=== PATIENT | female | born 1950 | race Caucasian/White ===

== ENCOUNTER 2017-12-31 20:13 | Inpatient (IN) ==
[2017-12-31] MEDS ORDERED: 0.9 % Sodium Chloride 1,000 ML IVC ONE ×2 (21:15→21:37)
[2017-12-31 21:18] LABS: Basophils % 0.2 %; Eosinophils % 0.2 %; Hematocrit 41.8 % (35.3-44.9); Hemoglobin 14.8 g/dL (11.5-15.4); Immature Granulocytes % 0.5 % (0-4); Lymphocytes % 14.7 %; Mean Corpuscular HGB Conc 35.4 g/dL (31.6-35.5); Mean Corpuscular Hemoglobin 31.4 pg (28.0-33.3); Mean Corpuscular Volume 88.6 fL (83.0-100.0); Mean Platelet Volume 11.2 fL (9.4-12.4); Monocytes # 0.5 K/mcL (0.0-1.3); Monocytes % 6.8 %; Neutrophils # 5.2 K/mcL (1.6-8.9); Platelet Count 109 K/mcL (140-400); Red Blood Count 4.72 M/mcL (3.82-4.97); Red Cell Distribution Width 12.8 % (11.5-14.5); Segmented Neutrophils % 77.6 %
[2017-12-31] MEDS ORDERED: Ondansetron 4 MG/2 ML VIAL IVP ONE (21:26)
[2017-12-31 21:39] LABS: Bilirubin,Urine Negative (Negative); Blood,Urine Moderate (Negative); Clarity,Urine Cloudy (Clear); Color,Urine Yellow (Yellow); Glucose,Urine (UA) Normal (Normal); Ketones,Urine Negative (Negative); Leukocyte Esterase,Urine Negative (Negative); Nitrite,Urine Negative (Negative); PH,Urine 5.5 pH Units (5.0-8.0); Protein,Urine 100 mg/dL (Neg-Trace); Specific Gravity,Urine 1.018 (1.010-1.025); Urobilinogen,Urine Normal (Normal)
[2017-12-31 21:40] LABS: Albumin/Globulin Ratio 1.5 (1.1-2.2); Bilirubin,Total 0.4 mg/dL (0.3-1.0); Calcium 8.9 mg/dL (8.6-10.3); Globulin 2.6 g/dL (2.4-3.5); Total Protein 6.6 g/dL (6.4-8.9)
[2017-12-31 21:41] LABS: Hyaline Casts,Urine None Seen per lpf (None-Few); Squamous Epithelial Cell,Urine Many per lpf (None-Few)
[2017-12-31] MEDS ORDERED: Ipratropium/Albuterol Neb 3 ML IH ONE (21:44)
--- NOTE | 2017-12-31 21:44 | Emergency Department Note ---
Disposition Clinical Impression: Influenza, BREANA (acute kidney injury), Elevated troponin Pneumonia Qualifiers: Pneumonia type: due to unspecified organism Laterality: left Lung location: unspecified part of lung Qualified Code(s): J18.9 - Pneumonia, unspecified organism Sepsis Qualifiers: Sepsis type: sepsis due to unspecified organism Qualified Code(s): A41.9 - Sepsis, unspecified organism Disposition: Admitted As Inpatient Condition: Fair Referrals: Navdeep Franco MD [Primary Care Provider] - Forms: ED Satisfaction Letter Time of Disposition: 22:26 General Adult HPI - General Chief complaint: ED Upper Respiratory Infection Stated complaint: cough,sore throat,nausea,diarrhea x6 days Time Seen by Provider: 12/31/17 21:12 Source: family Mode of arrival: ambulatory Limitations: no limitations Nursing Notes Reviewed: Yes Vital Signs Reviewed: Yes - History of Present Illness HPI Narrative: 67-year-old female history of COPD, stents, high blood pressure present for evaluation of shortness of breath and nonproductive cough for the past week. Patient denies any chest pain. Patient denies any nausea or vomiting. Patient has been having a sore throat as well as URI symptoms. Patient has had low- grade fevers. Patient states she quit smoking a week ago. Patient has been having sick contacts with her who is admitted for pneumonia. Patient denies any abdominal pain. Patient does not wear any oxygen at home. Patient has also been having nausea vomiting and diarrhea during this time. Pain Scale: 3 - Related Data Home Medications Medication Instructions Recorded Confirmed Aspirin Enteric Coated [Aspirin EC] 325 mg PO DAILY 12/31/17 12/31/17 Bee Pollen 580 mg PO DAILY 12/31/17 12/31/17 Benzonatate [Tessalon] 100 mg PO TID 12/31/17 12/31/17 Carvedilol [Carvedilol] 18.75 mg PO BID 12/31/17 12/31/17 Cholecalciferol (Vitamin D3) 10,000 unit PO DAILY 12/31/17 12/31/17 [Vitamin D3] Cyanocobalamin (Vitamin B-12) 1,000 mcg PO DAILY 12/31/17 12/31/17 [Vitamin B12] Lisinopril [Zestril] 10 mg PO DAILY 12/31/17 12/31/17 Omeprazole [PriLOSEC] 20 mg PO DAILY 12/31/17 12/31/17 Simvastatin [Zocor] 40 mg PO HS 12/31/17 12/31/17 Vitamin B Complex [B Complex] 1 each PO DAILY 12/31/17 12/31/17 Allergies Allergy/AdvReac Type Severity Reaction Status Date / Time bee venom protein (honey bee) Allergy Anaphylaxis Verified 12/31/17 20:30 All systems ED: reviewed and negative except as stated. Constitutional: Reports: fever Cardiovascular: Denies: chest pain Respiratory: Reports: cough, dyspnea. Denies: sputum production Gastrointestinal: Reports: nausea, vomiting, diarrhea. Denies: abdominal pain Past Medical History - Past Medical History Source: patient Medical history: Reports: coronary artery disease, hypertension, myocardial infarction Psychiatric history: Reports: no psych history - Social History Smoking Status: Current every day smoker Smokeless Tobacco Status: No Alcohol use: Reports: none Drug use: Reports: none Physical Exam - General Limitations: no limitations General appearance: alert, in no apparent distress - Head Head exam: atraumatic, normocephalic, normal inspection - Eye Eye exam: Present: normal appearance, PERRL, EOMI - ENT ENT exam: normal exam, mucous membranes moist - Neck Neck exam: Present: normal inspection - Chest Chest inspection: Present: normal inspection, symmetric chest wall rise - Respiratory Respiratory exam: Present: prolonged expiratory phase, other (Diffusely decreased breath sounds). Absent: respiratory distress - Cardiovascular Cardiovascular exam: Present: regular rate, normal rhythm. Absent: systolic murmur - Abdominal Exam Abdominal exam: Present: soft, Non-Tender - Extremities Exam Extremities exam: Present: normal inspection. Absent: pedal edema - Back Exam Back exam: Present: normal inspection - Neurological Exam Neurological exam: Present: alert, oriented X3 - Skin Skin exam: Present: warm, dry, intact, normal color Course Course Narrative: Patient will get basic labs, chest x-ray, now this, concerns for likely sepsis pneumonia given hypotensive borderline fever. Patient did lactate IV fluid hydration. - Reevaluation(s) Reevaluation #1: Patient seen and examined. Patient's blood pressures responding to the fluids. Patient's lab work reviewed showed that she does have acute kidney injury likely secondary from GI losses. Patient also has a mildly elevated troponin with no ischemic EKG changes. Patient was given an aspirin. Patient chest x- ray suggestive of likely pneumonia. Patient was influenza positive. Patient was started on antibiotics as well as Tamiflu given the patient's symptoms. Time: 22:24 Reevaluation #2: Patient repeat examination shows good perfusion. Responding to IV fluids. Patient's continuing to urinate. Time: 22:32 Vital Signs Temperature 99.9 F H 12/31/17 20:30 Pulse Rate 62 12/31/17 20:30 Respiratory Rate 16 12/31/17 20:30 Blood Pressure 75/40 12/31/17 20:30 O2 Sat by Pulse Oximetry 91 12/31/17 20:30 Temperature 98.4 F 12/31/17 22:02 Pulse Rate 66 12/31/17 22:15 Respiratory Rate 16 12/31/17 22:15 Blood Pressure 103/50 12/31/17 22:15 O2 Sat by Pulse Oximetry 98 12/31/17 22:15 Oxygen Delivery Oxygen Delivery Room Air Medical Decision Making - MDM Narrative Medical decision making narrative: Patient presents with concerns of sepsis. Source likely in the lungs. Patient was hypotensive. Patient's been having nausea vomiting diarrhea. Patient's ED evaluation shows influenza pneumonia. Given the severity of the patient's symptoms with hypotension the patient was started on antibiotics as well as Tamiflu. Patient's blood pressures responding to the fluids. Patient does have an element of acute kidney injury as well as elevated troponin with no secondary EKG changes of ischemia. Patient was given an aspirin. Patient's not complaining of chest pain. Patient was given a breathing treatment which did improve her symptoms. Patient's potassium was also noted to be low and was repleted in the emergency department. Patient is sepsis requiring IV fluid hydrations and meeting the 30 mL/kg fluid bolus. - Lab Data Lab results reviewed: Yes I reviewed the patient's lab results. Result diagrams: 12/31/17 21:05 12/31/17 21:05 Lab Results 12/31/17 12/31/17 12/31/17 Range/Units 21:05 21:05 21:05 WBC 6.7 (4.3-11.1) K/mcL RBC 4.72 (3.82-4.97) M/mcL Hgb 14.8 (11.5-15.4) g/dL Hct 41.8 (35.3-44.9) % MCV 88.6 (83.0-100.0) fL MCH 31.4 (28.0-33.3) pg MCHC 35.4 (31.6-35.5) g/dL RDW 12.8 (11.5-14.5) % Plt Count 109 L (140-400) K/mcL MPV 11.2 (9.4-12.4) fL Immature Gran % 0.5 (0-4) % Seg Neutrophils % 77.6 % Lymphocytes % 14.7 % Monocytes % 6.8 % Eosinophils % 0.2 % Basophils % 0.2 % Neutrophils # 5.2 (1.6-8.9) K/mcL Lymphocytes # 1.0 (0.6-4.6) K/mcL Monocytes # 0.5 (0.0-1.3) K/mcL Eosinophils # 0.0 (0.0-0.6) K/mcL Basophils # 0.0 (0.0-0.2) K/mcL Sodium 132 L (136-145) mEq/L Potassium 3.0 L (3.5-5.1) mEq/L Chloride 99 (98-107) mEq/L Carbon Dioxide 22 L (23-29) mEq/L BUN 40 H (8-23) mg/dL Creatinine 1.41 H (0.60-1.20) mg/dL Est GFR ( Amer) 45 L (> 60) Est GFR (Non-Af Amer) 37 L (> 60) BUN/Creatinine Ratio 28 H (6-26) Glucose 133 H (70-105) mg/dL Calculated Osmolality 286 (280-300) Lactic Acid (0.5-2.2) mmol/L Calcium 8.9 (8.6-10.3) mg/dL Magnesium (1.6-2.6) mg/dL Total Bilirubin 0.4 (0.3-1.0) mg/dL AST 127 H (13-39) Units/L ALT 56 H (7-52) Units/L Alkaline Phosphatase 71 (34-104) Units/L Troponin I 0.05 H* (< 0.04) ng/mL B-Natriuretic Peptide (Less than 100) pg/mL Serum Total Protein 6.6 (6.4-8.9) g/dL Albumin 4.0 (3.5-5.7) g/dL Globulin 2.6 (2.4-3.5) g/dL Albumin/Globulin Ratio 1.5 (1.1-2.2) Urine Color (Yellow) Urine Clarity (Clear) Urine pH (5.0-8.0) pH Units Ur Specific [place] (1.010-1.025) Urine Protein (Neg-Trace) mg/dL Urine Glucose (UA) (Normal) mg/dL Urine Ketones (Negative) mg/dL Urine Blood (Negative) Urine Nitrite (Negative) Urine Bilirubin (Negative) Urine Urobilinogen (Normal) mg/dL Ur Leukocyte Esterase (Negative) Urine Microscopic RBC (0-3) per hpf Urine Microscopic WBC (0-3) per hpf Ur Squamous Epith Cells (None-Few) per lpf Urine Bacteria (None-Few) per hpf Hyaline Casts (None-Few) per lpf Ur Culture Indicated? (NO) 12/31/17 12/31/17 12/31/17 Range/Units 21:05 21:28 21:40 WBC (4.3-11.1) K/mcL RBC (3.82-4.97) M/mcL Hgb (11.5-15.4) g/dL Hct (35.3-44.9) % MCV (83.0-100.0) fL MCH (28.0-33.3) pg MCHC (31.6-35.5) g/dL RDW (11.5-14.5) % Plt Count (140-400) K/mcL MPV (9.4-12.4) fL Immature Gran % (0-4) % Seg Neutrophils % % Lymphocytes % % Monocytes % % Eosinophils % % Basophils % % Neutrophils # (1.6-8.9) K/mcL Lymphocytes # (0.6-4.6) K/mcL Monocytes # (0.0-1.3) K/mcL Eosinophils # (0.0-0.6) K/mcL Basophils # (0.0-0.2) K/mcL Sodium (136-145) mEq/L Potassium (3.5-5.1) mEq/L Chloride (98-107) mEq/L Carbon Dioxide (23-29) mEq/L BUN (8-23) mg/dL Creatinine (0.60-1.20) mg/dL Est GFR ( Amer) (> 60) Est GFR (Non-Af Amer) (> 60) BUN/Creatinine Ratio (6-26) Glucose (70-105) mg/dL Calculated Osmolality (280-300) Lactic Acid 1.4 (0.5-2.2) mmol/L Calcium (8.6-10.3) mg/dL Magnesium (1.6-2.6) mg/dL Total Bilirubin (0.3-1.0) mg/dL AST (13-39) Units/L ALT (7-52) Units/L Alkaline Phosphatase (34-104) Units/L Troponin I (< 0.04) ng/mL B-Natriuretic Peptide 46 (Less than 100) pg/mL Serum Total Protein (6.4-8.9) g/dL Albumin (3.5-5.7) g/dL Globulin (2.4-3.5) g/dL Albumin/Globulin Ratio (1.1-2.2) Urine Color Yellow (Yellow) Urine Clarity Cloudy A (Clear) Urine pH 5.5 (5.0-8.0) pH Units Ur Specific [place] 1.018 (1.010-1.025) Urine Protein 100 H (Neg-Trace) mg/dL Urine Glucose (UA) Normal (Normal) mg/dL Urine Ketones Negative (Negative) mg/dL Urine Blood Moderate H (Negative) Urine Nitrite Negative (Negative) Urine Bilirubin Negative (Negative) Urine Urobilinogen Normal (Normal) mg/dL Ur Leukocyte Esterase Negative (Negative) Urine Microscopic RBC 3-5 H (0-3) per hpf Urine Microscopic WBC 5-15 H (0-3) per hpf Ur Squamous Epith Cells Many H (None-Few) per lpf Urine Bacteria Many H (None-Few) per hpf Hyaline Casts None Seen (None-Few) per lpf Ur Culture Indicated? NO (NO) 12/31/17 Range/Units 22:05 WBC (4.3-11.1) K/mcL RBC (3.82-4.97) M/mcL Hgb (11.5-15.4) g/dL Hct (35.3-44.9) % MCV (83.0-100.0) fL MCH (28.0-33.3) pg MCHC (31.6-35.5) g/dL RDW (11.5-14.5) % Plt Count (140-400) K/mcL MPV (9.4-12.4) fL Immature Gran % (0-4) % Seg Neutrophils % % Lymphocytes % % Monocytes % % Eosinophils % % Basophils % % Neutrophils # (1.6-8.9) K/mcL Lymphocytes # (0.6-4.6) K/mcL Monocytes # (0.0-1.3) K/mcL Eosinophils # (0.0-0.6) K/mcL Basophils # (0.0-0.2) K/mcL Sodium (136-145) mEq/L Potassium (3.5-5.1) mEq/L Chloride (98-107) mEq/L Carbon Dioxide (23-29) mEq/L BUN (8-23) mg/dL Creatinine (0.60-1.20) mg/dL Est GFR ( Amer) (> 60) Est GFR (Non-Af Amer) (> 60) BUN/Creatinine Ratio (6-26) Glucose (70-105) mg/dL Calculated Osmolality (280-300) Lactic Acid (0.5-2.2) mmol/L Calcium (8.6-10.3) mg/dL Magnesium 1.8 (1.6-2.6) mg/dL Total Bilirubin (0.3-1.0) mg/dL AST (13-39) Units/L ALT (7-52) Units/L Alkaline Phosphatase (34-104) Units/L Troponin I (< 0.04) ng/mL B-Natriuretic Peptide (Less than 100) pg/mL Serum Total Protein (6.4-8.9) g/dL Albumin (3.5-5.7) g/dL Globulin (2.4-3.5) g/dL Albumin/Globulin Ratio (1.1-2.2) Urine Color (Yellow) Urine Clarity (Clear) Urine pH (5.0-8.0) pH Units Ur Specific [place] (1.010-1.025) Urine Protein (Neg-Trace) mg/dL Urine Glucose (UA) (Normal) mg/dL Urine Ketones (Negative) mg/dL Urine Blood (Negative) Urine Nitrite (Negative) Urine Bilirubin (Negative) Urine Urobilinogen (Normal) mg/dL Ur Leukocyte Esterase (Negative) Urine Microscopic RBC (0-3) per hpf Urine Microscopic WBC (0-3) per hpf Ur Squamous Epith Cells (None-Few) per lpf Urine Bacteria (None-Few) per hpf Hyaline Casts (None-Few) per lpf Ur Culture Indicated? (NO) - Radiology Data Radiology results reviewed: Yes I reviewed the patient's radiology results. Chest X-Ray 12/31/17 21:40 IMPRESSION: Possible infiltrate within the left lung base. Recommend repeating exam with PA and lateral positioning for further evaluation. D/ / Mitchell Bello MD / Mitchell Bello MD Interpreting Provider: Mitchell Bello MD - EKG Data EKG #1 EKG attestation: Yes I reviewed and interpreted this EKG. EKG shows normal: sinus rhythm Rate: bradycardia Rhythm: NSR Bazine/QRS: normal Interpretation: no acute changes, nonspecific ST-T wave changes S.Julio César.Jerry - S.B.AKaterina Situation: Demographics Background: Presenting Complaint Assessment: Vital Signs, Course and respsone to treatment, Patient/Family Expectation Recommendation: Barrier(s) to disposition, Recommendation based on pending studies, treatments, or consults S.B.A.Sam Report Given to: Dr. Verónica Mann Repor Time: 22:39 Attestation Statement - Attestation Attestation: I, James Bosewll, examined this patient and my medical decision-making was reviewed with the VACCINE CUSTOMER REPRESENTATIVE/PA/Advanced Practice Nurse/Resident Physician. I agree with the documented findings, disposition and treatment plan as described except to the extent set forth below. 67-year-old female presents emergency Department with concerns of cough, sore throat, lightheadedness. Patient is in the hospital for treatment of pneumonia. Patient was hypotensive on initial evaluation in emergency department. Patient is awake and talking and not in respiratory distress. Patient describes chest pain which is only with cough however she continues to feel nauseated and lightheaded when not coughing. No associated diaphoresis. Patient is influenza be positive. Chest x-ray showed possible infiltrate in the left lung base. Patient be started on antibiotics emergency department and admitted for further care and evaluation.
[2017-12-31] MEDS ORDERED: Aspirin 81 MG TAB.CHEW PO ONE (21:50)
[2017-12-31 22:17] LABS: Bacteria,Urine Many per hpf (None-Few)
[2017-12-31] MEDS ORDERED: Hyoscyamine 0.5 MG/ML MLS IVP ONE (22:26)
[2017-12-31] MEDS ORDERED: 0.9 % Sodium Chloride 1,000 ML ONE (22:42)
[2017-12-31] MEDS ORDERED: Piperacillin/Tazobactam 3.375 GM in Water for inj. (sterile) 20 ML 20 ML IVPB ONE (23:00)
[2018-01-01] MEDS ORDERED: Acetaminophen 325 MG TABLET PO PRN (01:25)
[2018-01-01] MEDS ORDERED: Naloxone 0.4 MG/ML INJ IVP PRN (01:25)
[2018-01-01 01:43] LABS: Basophils % 0.2 %; Eosinophils % 0.2 %; Mean Corpuscular Hemoglobin 31.1 pg (28.0-33.3); Red Blood Count 3.95 M/mcL (3.82-4.97); Red Cell Distribution Width 12.9 % (11.5-14.5)
[2018-01-01 01:45] LABS: Hematocrit 35.4 % (35.3-44.9); Hemoglobin 12.3 g/dL (11.5-15.4); Immature Granulocytes % 0.5 % (0-4); Immature Platelets 8.2 % (1.1-6.1); Lymphocytes % 15.3 %; Mean Corpuscular HGB Conc 34.7 g/dL (31.6-35.5); Mean Corpuscular Volume 89.6 fL (83.0-100.0); Mean Platelet Volume 11.1 fL (9.4-12.4); Monocytes # 0.5 K/mcL (0.0-1.3); Monocytes % 7.4 %; Segmented Neutrophils % 76.4 %
[2018-01-01 01:47] LABS: Platelet Count 99 K/mcL (140-400)
[2018-01-01 02:16] LABS: Calcium 7.6 mg/dL (8.6-10.3); Magnesium 1.8 mg/dL (1.6-2.6); Potassium 3.4 mEq/L (3.5-5.1)
[2018-01-01] MEDS: 0.9 % Sodium Chloride 1,000 ML IVC SCH ×2 (02:32→08:40)
[2018-01-01] MEDS: cefTRIAXone 1,000 MG in Water for inj. (sterile) 20 ML 10 ML IVPB SCH (02:32)
[2018-01-01] MEDS: Azithromycin 500 MG in D5% in Water 250 ML IVPB SCH (02:33)
--- NOTE | 2018-01-01 05:05 | Internal Med History&Physical ---
Date of Encounter: 01/01/18 Time of Encounter: 03:00 Assessment and Plan (1) CAD (coronary artery disease) Current visit: Yes Status: Acute Cont home medications ASA, BB, ACEI, and statin Qualifiers: Coronary Disease-Associated Artery/Lesion type: [place] artery [place] vs. transplanted heart: [place] heart Associated angina: without angina Qualified Code(s): I25.10 - Atherosclerotic heart disease of [place] coronary artery without angina pectoris (2) DVT prophylaxis Current visit: Yes Status: Acute Heparin SC (3) BREANA (acute kidney injury) Current visit: Yes Status: Acute Cr is higher than baseline, place pt on IVF, f/u with renal function. (4) Elevated troponin Current visit: Yes Status: Acute Pt denies chest pain, EKG is unremarkable, possibly demend ischemia. - Will track 3 set of troponin. - Cont cardiac monitoring. (5) Influenza Current visit: Yes Status: Acute Influenza B positive. Place pt on tamiflu 75mg po bid to finish 10 doses. (6) Pneumonia Current visit: Yes Status: Acute Will treat pt as CAP with azithromycin and rocephin. - Cough syrup for symptomatic treatment. Qualifiers: Pneumonia type: due to Pneumococcus Laterality: left Lung location: lower lobe of lung Qualified Code(s): J13 - Pneumonia due to Streptococcus pneumoniae (7) Hypokalemia Current visit: Yes Status: Acute Possibly due to poor intake, give po supplement. Internal Medicine - H&P: HPI Chief complaint: Cough Admitted From: Home Plans for Post Hospital Care: Home History of present illness: Ms. Montenegro is a 67 year old female with Hx of CAD s/p stent present to ER for non- productive cough for 7 days. Pt denies fever, runny nose, SOB, chest pain, muscle ache, nausea, or vomiting. In ER, pt was found Flu B positive. CXR shows possible LLL pneumonia. Pt denies recent hospitalization. Pt was admitted for influenza and CAP. Past Med Surg Social Fam HX - Past Medical History Medical history: coronary artery disease, hypertension, myocardial infarction Psychiatric history: no psych history - Social History Smoking Status: Current every day smoker Smokeless Tobacco Status: No Alcohol use: none Drug use: none - Family History Mother History Unknown: Yes Internal Medicine - H&P: Meds Aspirin Enteric Coated [Aspirin EC] 325 mg PO DAILY 12/31/17 [History] Bee Pollen 580 mg PO DAILY 12/31/17 [History] Benzonatate [Tessalon] 100 mg PO TID 12/31/17 [History] Carvedilol [Carvedilol] 18.75 mg PO BID 12/31/17 [History] Cholecalciferol (Vitamin D3) [Vitamin D3] 10,000 unit PO DAILY 12/31/17 [History ] Cyanocobalamin (Vitamin B-12) [Vitamin B12] 1,000 mcg PO DAILY 12/31/17 [History ] Lisinopril [Zestril] 10 mg PO DAILY 12/31/17 [History] Omeprazole [PriLOSEC] 20 mg PO DAILY 12/31/17 [History] Simvastatin [Zocor] 40 mg PO HS 12/31/17 [History] Vitamin B Complex [B Complex] 1 each PO DAILY 12/31/17 [History] 3 Allergy/AdvReac Type Severity Reaction Status Date / Time bee venom protein (honey bee) Allergy Anaphylaxis Verified 12/31/17 20:30 All Systems PM: A 10-system review of systems was performed and is negative for pertinent findings except as documented above in the HPI. - Constitutional Vitals: Temp Pulse Resp BP Pulse Ox 98.4 F 66 18 98/49 95 12/31/17 22:02 01/01/18 00:44 01/01/18 00:44 01/01/18 00:44 01/01/18 00:44 General appearance: Present: mild distress, A&O X 3, answers questions appropriately - Head Head exam: Present: atraumatic, normocephalic - Eye Eye exam: Present: PERRL, conjuntiva pink, sclera anicteric Pupils: Present: PERRL - Neck Neck exam general surgery: Present: supple, trachea midline. Absent: lymphadenopathy - Respiratory Respiratory exam: Present: CTAB. Absent: accessory muscle use, rales, rhonchi, wheezes - Cardiovascular Cardiovascular exam: Present: RRR, +S1, +S2. Absent: diastolic murmur, gallop, rubs, systolic murmur - GI/Abdominal GI/Abdominal exam: Present: normal bowel sounds, soft, no peritoneal signs. Absent: distended, tenderness - Extremities Exam Extremities exam: Present: warm, radial pulses palpable and symmetrical. Absent : calf tenderness, cyanotic, pedal edema - Neurological Exam Neurological exam: Present: CN II-XII intact, oriented X3, no focal deficits. Absent: pronater drift, facial droop, speech deficit - Skin Skin exam: Present: dry, intact Internal Med - H&P Results - Labs CBC & Chem 7: 01/01/18 01:36 01/01/18 01:36 Labs: Short CBC 01/01/18 Range/Units 01:36 WBC 6.6 (4.3-11.1) K/mcL Hgb 12.3 D (11.5-15.4) g/dL Hct 35.4 (35.3-44.9) % Plt Count 99 L (140-400) K/mcL Neutrophils # 5.0 (1.6-8.9) K/mcL BMP 01/01/18 01:36 Sodium 135 L Potassium 3.4 L Chloride 109 H Carbon Dioxide 19 L BUN 36 H Creatinine 1.20 Glucose 119 H Calcium 7.6 L Cardiac Enzymes 01/01/18 Range/Units 01:36 Troponin I 0.05 H* (< 0.04) ng/mL - EKG Data -: EKG Interpreted by Myself EKG shows normal: sinus rhythm Rate: normal
[2018-01-01] MEDS: *HR* Heparin 5,000 UNIT/ML VIAL SQ SCH ×2 (06:08→17:34)
[2018-01-01] MEDS: Aspirin Enteric Coated 325 MG Tablet PO SCH (08:41)
[2018-01-01] MEDS: Vitamin B Complex/Vit C/Vit E 1 EACH TABLET PO SCH (08:41)
[2018-01-01] MEDS: Cyanocobalamin (B-12) 1,000 MCG TABLET PO SCH (08:41)
[2018-01-01] MEDS: Cholecalciferol (D-3) 1,000 UNIT TABLET PO SCH (08:41)
--- NOTE | 2018-01-01 10:02 | Event Note ---
Date of Encounter: 01/01/18 Time of Encounter: 10:01 Patient seen and examined. Admitted last night with the flu, pneumonia, BREANA. Improving somewhat. We will continue Tamiflu, Zithromax, ceftriaxone. Continue IV fluids.
[2018-01-01] MEDS: Ipratropium/Albuterol Neb 3 ML IH PRN (16:55)
[2018-01-02] MEDS: Azithromycin 500 MG in D5% in Water 250 ML IVPB SCH (01:45)
[2018-01-02] MEDS: cefTRIAXone 1,000 MG in Water for inj. (sterile) 20 ML 10 ML IVPB SCH (01:46)
[2018-01-02] MEDS: Ipratropium/Albuterol Neb 3 ML IH PRN (02:09)
[2018-01-02 04:36] LABS: Basophils % 0.2 %; Eosinophils % 0.2 %; Hematocrit 39.3 % (35.3-44.9); Immature Granulocytes % 0.5 % (0-4); Lymphocytes # 1.9 K/mcL (0.6-4.6); Lymphocytes % 20.1 %; Mean Corpuscular HGB Conc 33.1 g/dL (31.6-35.5); Mean Corpuscular Hemoglobin 30.2 pg (28.0-33.3); Mean Corpuscular Volume 91.2 fL (83.0-100.0); Mean Platelet Volume 11.9 fL (9.4-12.4); Monocytes # 0.7 K/mcL (0.0-1.3); Monocytes % 7.1 %; Neutrophils # 6.8 K/mcL (1.6-8.9); Nucleated Red Blood Cells 0.4 /100 WBC (0); Platelet Count 108 K/mcL (140-400); Red Blood Count 4.31 M/mcL (3.82-4.97); Red Cell Distribution Width 13.5 % (11.5-14.5); Segmented Neutrophils % 71.9 %
[2018-01-02] MEDS ORDERED: Furosemide 40 MG/4 ML VIAL IVP ONE ×2 (04:40→05:07)
[2018-01-02] MEDS ORDERED: Nitroglycerin 1 INCH/GM PACKET TP ONE (04:47)
[2018-01-02] MEDS ORDERED: Nitroglycerin 0.4 MG TAB.SUBL SL ONE (04:48)
[2018-01-02] MEDS ORDERED: Furosemide 40 MG/4 ML VIAL ONE ×2 (04:48→05:14)
[2018-01-02] MEDS: Nitroglycerin 0.4 MG TAB.SUBL SL STA ×2 (04:49→12:46)
[2018-01-02 05:09] LABS: Platelet Estimate Decreased (Normal)
[2018-01-02 05:10] LABS: Reactive Lymphocytes Present (Not Present)
[2018-01-02 05:13] LABS: Alanine Aminotransferase 90 Units/L (7-52); Alkaline Phosphatase 137 Units/L (34-104); Aspartate Amino Transferase 136 Units/L (13-39); BUN/Creatinine Ratio 17 (6-26); Bilirubin,Total 0.4 mg/dL (0.3-1.0); Blood Urea Nitrogen 10 mg/dL (8-23); Calcium 8.7 mg/dL (8.6-10.3); Carbon Dioxide 21 mEq/L (23-29); Chloride 110 mEq/L (98-107); Glucose 153 mg/dL (70-105); Magnesium 1.8 mg/dL (1.6-2.6); Osmolality,Calculated 286 (280-300); Potassium 4.4 mEq/L (3.5-5.1); Sodium 137 mEq/L (136-145); Total Protein 5.6 g/dL (6.4-8.9); eGFR For Non-African Americans > 60 (> 60)
[2018-01-02 05:31] LABS: Albumin 3.3 g/dL (3.5-5.7); Albumin/Globulin Ratio 1.4 (1.1-2.2); Globulin 2.3 g/dL (2.4-3.5)
[2018-01-02] MEDS ORDERED: *HR* Heparin 5,000 UNIT/ML VIAL IVP ONE (05:42)
[2018-01-02] MEDS ORDERED: *HR* Heparin 5,000 UNIT/ML VIAL IVP PRN ×2 (05:42)
[2018-01-02] MEDS ORDERED: Heparin 25,000 UNIT/500 ML D5W 25,000 UNIT/500 ML BAG IVC SCH (05:45)
--- NOTE | 2018-01-02 05:53 | Event Note ---
Date of Encounter: 01/02/18 Time of Encounter: 05:00 Pt has sudden onset increased SOB, diaphoresis, and c/o chest pressure. See pt at bedside, she is in acute respiratory distress. BP is elevated to 200s. Lungs is full of rhonchi/rales B/L, no wheezes. Limbs are cold and pt has diaphoresis. Pt has hx of CAD s/p stent. ACS was suspected. NTG SL followed with NTG patch was placed. BIPAP was placed. Lasix 40 mg iv x 2 was given. Orozco placed. EKG and CXR ordered. 3 sets of troponin ordered. After treatment, pt feels better, chest pressure improved. Still tachypnea but improved. EKG reviewed, shows NSR w/o significant ST-T changes. CXR shows increased diffuse interstitial and alveolar opacities, considering pulmonary edema or ARDS. Pt has elevated troponin to 0.11. Will start low dose heparin drip, check echo and consult cardio in AM. Cont cardiac monitoring and cont track another two troponin. Cont tamiflu and abx for influenza and PNA. Cont BiPAP supportive now.
--- NOTE | 2018-01-02 07:37 | Event Note ---
Date of Encounter: 01/02/18 Time of Encounter: 07:31 Pateint seen and examined. Agree with the Resident's note as written by Dr. Cardenas. I have provided direct supervision in the care of the patient. Admitted originally with the flu, pneumonia, BREAAN. Has been on Tamiflu, Zithromax, ceftriaxone. Last night went into respiratory distress. Please see separate event note by Dr. Sibley. Patient was given lasix. trops were noted to be elevated and a heparin drip was started. CXR with worsening findings suggestive of possibly ARDS vs pulmonary edema. EKG with no ST or T wave changes Allow for diuresis and repeat a CXR Consider CTA chest if hypoxia is not improving with diuresis ABG STAT Consider a c/s to pulm Transfer out of ED to [facility] O2 supports Trend cardiac enzymes. Has h/o CAD c/w BB/ASA/statin Stop IVF Strict I&Os c/s cardiology has been placed by night team. Check TTE c/w current abx as is f/u on cultures c/w tamiflu BREANA resolved
[2018-01-02 07:47] LABS: INR 1.2; Prothrombin Time 12.8 Seconds (9.4-12.1)
[2018-01-02 07:50] LABS: Activated Partial Thrombo Time 36.1 Seconds (26.0-36.0)
[2018-01-02 08:03] LABS: Hematocrit 39.7 % (35.3-44.9); Hemoglobin 13.7 g/dL (11.5-15.4); Mean Corpuscular HGB Conc 34.5 g/dL (31.6-35.5); Mean Corpuscular Hemoglobin 31.1 pg (28.0-33.3); Platelet Count 121 K/mcL (140-400); Red Blood Count 4.41 M/mcL (3.82-4.97); Red Cell Distribution Width 13.6 % (11.5-14.5)
[2018-01-02 08:30] LABS: ABG Base Excess 3 mEq/L (-2 to 3); ABG HCO3 26 mEq/L (21-27); ABG Oxygen Saturation 98 % (95-98); ABG PCO2 34 mmHg (35-45); ABG PH 7.48 pH Units (7.32-7.45); ABG PO2 89 mmHg (85-104); ABG TCO2 27 mEq/L (20-26); Blood Gas Respiration Rate 20
[2018-01-02] MEDS: Aspirin Enteric Coated 325 MG Tablet PO SCH (08:51)
[2018-01-02] MEDS: Vitamin B Complex/Vit C/Vit E 1 EACH TABLET PO SCH (10:06)
[2018-01-02] MEDS: Cyanocobalamin (B-12) 1,000 MCG TABLET PO SCH (10:06)
[2018-01-02] MEDS: Cholecalciferol (D-3) 1,000 UNIT TABLET PO SCH (10:07)
[2018-01-02] MEDS ORDERED: 0.9 % Sodium Chloride 250 ML ONE (10:11)
[2018-01-02] MEDS: Ipratropium/Albuterol Neb 3 ML IH SCH ×4 (11:50→23:55)
--- NOTE | 2018-01-02 12:25 | Cardiology Consult Note ---
Date of Encounter: 01/02/18 Time of Encounter: 12:21 Assessment and Plan (1) Elevated troponin Current Visit: Yes Status: Acute Mild troponin elevation up to 0.11 likely demand ischemia in the setting of acute hypoxic respiratory distress due to PNA/influenza. Denies chest pain. EKG with no concerning changes. Check TTE. (2) Pneumonia Current Visit: Yes Status: Acute Hospitalist following. CXR showed infiltrate LLL. On IV antibiotic. Qualifiers: Pneumonia type: due to Pneumococcus Laterality: left Lung location: lower lobe of lung Qualified Code(s): J13 - Pneumonia due to Streptococcus pneumoniae (3) CAD (coronary artery disease) Current Visit: Yes Status: Acute H/o RI and 3 cardiac stents in 2006. Continue asa, statin, and bb. Qualifiers: Coronary Disease-Associated Artery/Lesion type: [place] artery [place] vs. transplanted heart: [place] heart Associated angina: without angina Qualified Code(s): I25.10 - Atherosclerotic heart disease of [place] coronary artery without angina pectoris Discussion w patient/family: The assessment and plan as outlined above was discussed with the patient and/or family members who expressed understanding and agreement. All questions were answered. Thank you for involving us in the care of your patient. Please call with any questions. History of Present Illness Consult date: 12/07/17 Requesting physician: James Boswell Consult reason: ELevated troponin Chief complaint: SOB History of present illness: Ms. Montenegro is a 67 year old female with a past medical history of RI and PCI in 2006, SVT, HTN, HLD, COPD, and tobacco abuse who presented with SOB and cough increasing for over one month. She was found to have influenza B and PNA. She developed respiratory distress last night and required c-pap. Cardiology consulted for elevated troponin. She denies having chest pain or palpitations. Past Med Surg Social Fam HX - Past Medical History Medical history: coronary artery disease, hyperlipidemia, hypertension, myocardial infarction Psychiatric history: no psych history - Social History Smoking Status: Current every day smoker Smokeless Tobacco Status: No Alcohol use: none Drug use: none - Family History Mother History Unknown: Yes Medications and Allergies Aspirin Enteric Coated [Aspirin EC] 325 mg PO DAILY 12/31/17 [History] Bee Pollen 580 mg PO DAILY 12/31/17 [History] Benzonatate [Tessalon] 100 mg PO TID 12/31/17 [History] Carvedilol [Carvedilol] 18.75 mg PO BID 12/31/17 [History] Cholecalciferol (Vitamin D3) [Vitamin D3] 10,000 unit PO DAILY 12/31/17 [History ] Cyanocobalamin (Vitamin B-12) [Vitamin B12] 1,000 mcg PO DAILY 12/31/17 [History ] Lisinopril [Zestril] 10 mg PO DAILY 12/31/17 [History] Omeprazole [PriLOSEC] 20 mg PO DAILY 12/31/17 [History] Simvastatin [Zocor] 40 mg PO HS 12/31/17 [History] Vitamin B Complex [B Complex] 1 each PO DAILY 12/31/17 [History] 3 Allergy/AdvReac Type Severity Reaction Status Date / Time bee venom protein (honey bee) Allergy Anaphylaxis Verified 12/31/17 20:30 All Systems Review: The remainder of the systems were reviewed and are negative Physical Examination Vital Signs, Last 4 Hours Temp Pulse Resp BP Pulse Ox 01/02/18 12:04 17 127/65 94 01/02/18 11:20 98.9 F 70 17 127/65 94 General: Conversant, No Apparent Distress HEENT: Atraumatic, Normocephaly, Mucus Membranes Moist Neck: No JVD, Normal carotid pulses Cardiac: Reg Rate and Rhythm, Normal S1 and S2, No Murmur, Other Lungs: Other (Rhonci scattered throughout. Conversational dyspnea. ) Neuro: Alert and responsive, No focal deficits noted Abdomen: Soft, Non-Tender Skin: No rashes noted on visualized skin Musculoskeletal: No Chest Wall Tenderness Extremities: No Clubbing, No Cyanosis, No Edema, Normal Pulses Results 01/02/18 03:34 01/02/18 03:34 Lab Results 01/02/18 01/02/18 01/02/18 03:34 03:34 03:34 WBC 9.4 Hgb 13.0 Hct 39.3 Plt Count 108 L INR APTT Sodium 137 Potassium 4.4 Chloride 110 H Carbon Dioxide 21 L BUN 10 Creatinine 0.59 L Glucose 153 H Calcium 8.7 Magnesium 1.8 Total Bilirubin 0.4 AST 136 H ALT 90 H Alkaline Phosphatase 137 H Troponin I 0.11 H* 01/02/18 01/02/18 07:03 10:55 WBC Hgb Hct Plt Count INR 1.2 APTT 36.1 H Sodium Potassium Chloride Carbon Dioxide BUN Creatinine Glucose Calcium Magnesium Total Bilirubin AST ALT Alkaline Phosphatase Troponin I 0.48 H* - Imaging and Cardiology Chest Xray: report reviewed Echo: pending - EKG Interpretation EKG results cardiology: personally reviewed (Sr with no acute ST changes) Consult Discharge Plan - Plan Referrals: Navdeep Franco MD [Primary Care Provider] -
[2018-01-02] MEDS ORDERED: Magnesium Oxide 400 MG TABLET PO ONE (15:55)
[2018-01-03 02:47] LABS: Basophils % 0.2 %; Eosinophils % 0.3 %; Hemoglobin 12.5 g/dL (11.5-15.4); Immature Granulocytes % 0.3 % (0-4); Lymphocytes % 30.1 %; Mean Corpuscular HGB Conc 34.7 g/dL (31.6-35.5); Mean Corpuscular Hemoglobin 30.7 pg (28.0-33.3); Mean Corpuscular Volume 88.5 fL (83.0-100.0); Mean Platelet Volume 11.3 fL (9.4-12.4); Monocytes # 0.9 K/mcL (0.0-1.3); Monocytes % 9.3 %; Platelet Count 130 K/mcL (140-400); Red Blood Count 4.07 M/mcL (3.82-4.97); Red Cell Distribution Width 13.3 % (11.5-14.5); Segmented Neutrophils % 59.8 %
[2018-01-03 03:04] LABS: BUN/Creatinine Ratio 23 (6-26); Blood Urea Nitrogen 12 mg/dL (8-23); Calcium 8.9 mg/dL (8.6-10.3); Carbon Dioxide 25 mEq/L (23-29); Chloride 104 mEq/L (98-107); Glucose 108 mg/dL (70-105); Magnesium 1.7 mg/dL (1.6-2.6); Osmolality,Calculated 284 (280-300); Potassium 3.7 mEq/L (3.5-5.1); Sodium 137 mEq/L (136-145); eGFR For Non-African Americans > 60 (> 60)
[2018-01-03 04:30] LABS: Platelet Estimate Slight Decrease (Normal); Reactive Lymphocytes Present (Not Present)
[2018-01-03] MEDS: Ipratropium/Albuterol Neb 3 ML IH SCH ×6 (04:50→23:11)
[2018-01-03] MEDS: cefTRIAXone 1,000 MG in Water for inj. (sterile) 20 ML 10 ML IVPB SCH (04:52)
[2018-01-03] MEDS: Azithromycin 500 MG in D5% in Water 250 ML IVPB SCH (04:55)
[2018-01-03] MEDS: cefTRIAXone 1,000 MG in Water for inj. (sterile) 20 ML 10 ML IVP SCH (06:18)
--- NOTE | 2018-01-03 07:35 | Internal Med Progress Note ---
Date of Encounter: 01/03/18 Time of Encounter: 07:33 - Assessment and plan (1) Acute respiratory failure with hypoxia Current Visit: Yes Status: Acute Assessment and plan: Possibly from pulmonary edema. Also has pneumonia in the flu. Had significant improvement with diuresis. Cut down diuresis to 40 mg daily. O2 support as needed. Nebs. Repeat chest x-ray yesterday showed improvement in pulmonary edema.. (2) Pneumonia Current Visit: Yes Status: Acute Assessment and plan: Continue Zithromax and Rocephin day 3 antibiotics. Cultures have been negative. O2 support as needed. Continue nebulizers. Qualifiers: Pneumonia type: due to Pneumococcus Laterality: left Lung location: lower lobe of lung Qualified Code(s): J13 - Pneumonia due to Streptococcus pneumoniae (3) Influenza Current Visit: Yes Status: Acute Assessment and plan: Continue Tamiflu to 3. (4) Elevated troponin Current Visit: Yes Status: Acute Assessment and plan: Trops trended up to 0.48 and have decreased to 0.30. Possibly demand ischemia. Cardiology is following. They are okay with a heparin drip for now. Echo with an EF of 60% with mild pulmonary hypertension. Await cardiology's recommendations for today. Possible LHC?? (5) BREANA (acute kidney injury) Current Visit: Yes Status: Acute Assessment and plan: Resolved. IVF have stopped. Continue to monitor. (6) CAD (coronary artery disease) Current Visit: Yes Status: Acute Assessment and plan: Currently on a heparin drip. Continue aspirin, beta radha, statin. Qualifiers: Coronary Disease-Associated Artery/Lesion type: [place] artery [place] vs. transplanted heart: [place] heart Associated angina: without angina Qualified Code(s): I25.10 - Atherosclerotic heart disease of [place] coronary artery without angina pectoris (7) DVT prophylaxis Current Visit: Yes Status: Acute Assessment and plan: On heparin drip - Subjective Interval history: Patient seen and examined. No acute events. Afebrile. She is actually currently on room air. Denies chest pain. Admitted originally with the flu, pneumonia, BREANA. Has been on Tamiflu, Zithromax, ceftriaxone. Stay complicated by going into acute respiratory distress with findings of possible pulmonary edema/ARDS. She was diuresed aggressively yesterday with a great response. She is off BiPAP now. Cardiology is following the patient as well for elevated troponins. - Constitutional Vitals: Temp Pulse Resp BP Pulse Ox 99.3 F 69 16 134/57 93 01/03/18 01:38 01/03/18 01:38 01/03/18 04:50 01/03/18 01:38 01/03/18 04:50 General appearance: Present: mild distress, A&O X 3, answers questions appropriately Exam: GEN: NAD CVS: RRR. S1, S2, No m/r/g RESP: CTAB ABD: Soft, NT, ND, +BS EXT: No edema. 2+ DP, No rashes NEURO: Nonfocal Internal Medicine: Result - Labs CBC & Chem 7: 01/03/18 02:10 01/03/18 02:10 Labs: Short CBC 01/02/18 01/03/18 Range/Units 07:03 02:10 WBC 11.0 10.0 (4.3-11.1) K/mcL Hgb 13.7 12.5 (11.5-15.4) g/dL Hct 39.7 36.0 (35.3-44.9) % Plt Count 121 L 130 L (140-400) K/mcL Neutrophils # 6.0 (1.6-8.9) K/mcL BMP 01/03/18 02:10 Sodium 137 Potassium 3.7 Chloride 104 Carbon Dioxide 25 BUN 12 Creatinine 0.52 L Glucose 108 H Calcium 8.9 Cardiac Enzymes 01/02/18 01/02/18 Range/Units 10:55 17:52 Troponin I 0.48 H* 0.30 H* (< 0.04) ng/mL - ABG Interpretation ABG results: ABG ABG pH 7.48 pH Units (7.32-7.45) H 01/02/18 08:24 ABG pCO2 34 mmHg (35-45) L 01/02/18 08:24 ABG pO2 89 mmHg (85-104) 01/02/18 08:24 ABG O2 Saturation 98 % (95-98) 01/02/18 08:24 PT/INR, D-dimer PT 12.8 Seconds (9.4-12.1) H 01/02/18 07:03 - Impressions Impressions Echocardiogram 01/02/18 05:44 Impressions: LVEF 60%. Normal LV chamber size, wall thickness and function. Normal right ventricular structure and function. Mild pulmonary hypertension. No significant valvular dysfunction. Left Ventricular Wall Motion: Rest Echo Findings All wall segments showed normal motion. Findings: Study Quality * Technically adequate exam. ECG Findings * Normal sinus rhythm. Left Ventricle * LVEF 60%. * Normal LV chamber size, wall thickness and function. Right Ventricle * Normal right ventricular structure and function. Left Atrium * Mildly dilated left atrium. Right Atrium * Normal right atrial size. Interatrial Septum * No evidence of PFO by color Doppler. Aortic Valve * Trileaflet aortic valve with normal function. * No aortic regurgitation. * No aortic stenosis. Mitral Valve * Normal mitral valve structure and function. * No mitral stenosis. * No mitral regurgitation. Tricuspid Valve * Normal tricuspid valve structure and function. * Trace tricuspid regurgitation. * Mild pulmonary hypertension. Pulmonic Valve * Normal pulmonic valve structure and function. * No pulmonic regurgitation. Aorta * Normally sized aortic root. Pericardium * The pericardium appears normal. IVC * Normal IVC dimensions and inspiratory collapse. Pulmonary Artery * Normal visualized portions of the main pulmonary artery. Chest X-Ray 01/02/18 14:00 IMPRESSION: 1. Mild pulmonary edema, improved compared to prior study earlier today. Small bilateral pleural effusions remain present. D/ / Cristo Rodriguez MD / Cristo Rodriguez MD Interpreting Provider: Cristo Rodriguez MD Consult Discharge Plan - Plan Referrals: Navdeep Franco MD [Primary Care Provider] -
[2018-01-03] MEDS ORDERED: Magnesium Oxide 400 MG TABLET PO ONE (07:37)
[2018-01-03] MEDS ORDERED: Furosemide 40 MG/4 ML VIAL IVP SCH (08:00)
[2018-01-03] MEDS: Cyanocobalamin (B-12) 1,000 MCG TABLET PO SCH (09:24)
[2018-01-03] MEDS: Aspirin Enteric Coated 325 MG Tablet PO SCH (09:25)
[2018-01-03] MEDS: Vitamin B Complex/Vit C/Vit E 1 EACH TABLET PO SCH (09:26)
[2018-01-03] MEDS: Furosemide 40 MG/4 ML VIAL IVP SCH (09:26)
[2018-01-03] MEDS: Cholecalciferol (D-3) 1,000 UNIT TABLET PO SCH (09:26)
--- NOTE | 2018-01-03 10:23 | Electrocardiograph Report ---
[place] [id number] Test Date: 2017-12-31 Pat Name: Kyle Montenegro Department: 104 Room: [facility] Gender: F Front Line Supervisor: : 1950 Requested By: Lane Philip Order Number: [id number] Reading MD: Narayan Hall DO Measurements Intervals [place] Rate: 58 P: 11 WV: 135 QRS: 66 QRSD: 94 T: 79 QT: 446 QTc: 442 Interpretive Statements SINUS BRADYCARDIA Electronically Signed On 01-03-2018 10:22:09 EST by Narayan Hall DO
--- NOTE | 2018-01-03 10:36 | Cardiology Progress Note ---
Date of Encounter: 01/03/18 Time of Encounter: 10:34 Assessment and Plan (1) Elevated troponin Current Visit: Yes Status: Acute Mild troponin elevation up to 0.48 possible NSTEMI vs type II ME from respiratory distress. Given cardiac history a LHC is recommended prior to discharge for ischemic evaluation. LHC R/B/A discussed. She agrees to proceed only when she can have a face to face conversation with her . is also hospitalized with influenza. Discussed with nursing staff. She is currently pain free. TTE shows preserved EF. Continue asa, statin, bb, and heparin gtt. Please notify cardiology when patient is ready for LHC. If it is not done today we will likely complete on saturday. (2) Pneumonia Current Visit: Yes Status: Acute Hospitalist following. CXR showed infiltrate LLL. On IV antibiotic. Repeat CXR shows bilateral pleural effusions. Qualifiers: Pneumonia type: due to Pneumococcus Laterality: left Lung location: lower lobe of lung Qualified Code(s): J13 - Pneumonia due to Streptococcus pneumoniae (3) CAD (coronary artery disease) Current Visit: Yes Status: Acute H/o ME and 3 cardiac stents in 2006. Continue asa, statin, and bb. Qualifiers: Coronary Disease-Associated Artery/Lesion type: [place] artery [place] vs. transplanted heart: [place] heart Associated angina: without angina Qualified Code(s): I25.10 - Atherosclerotic heart disease of [place] coronary artery without angina pectoris (4) Pleural effusion Current Visit: Yes Status: Acute Bilateral pleural effusion seen on repeat CXR. Flash pulmonary edema from IVF and possible ischemia? TTE shows preserved EF and no significant valvular disease. Agree with IV fluid. LHC when able. Discussion w patient/family: The assessment and plan as outlined above was discussed with the patient and/or family members who expressed understanding and agreement. All questions were answered. Thank you for involving us in the care of your patient. Please call with any questions. Subjective Principal diagnosis: NSTEMI Interval history: Ms. Montenegro reports she is breathing better. C/o concern for puentes catheter irritation. Objective Vital Signs, Last 4 Hours Temp Pulse Resp BP Pulse Ox 01/03/18 08:07 97.8 F 66 16 178/73 97 General: Conversant, No Apparent Distress HEENT: Atraumatic, Normocephaly, Mucus Membranes Moist Neck: No JVD, Normal carotid pulses Cardiac: Reg Rate and Rhythm, Normal S1 and S2, No Murmur Lungs: Normal Breath Sounds, No Wheeze, Rales, Rhonchi Neuro: Alert and responsive, No focal deficits noted Abdomen: Soft, Non-Tender Skin: No rashes noted on visualized skin Musculoskeletal: No Chest Wall Tenderness Extremities: No Clubbing, No Cyanosis, No Edema, Normal Pulses Other: Puentes draining lexi color urine. Results 01/03/18 02:10 01/03/18 02:10 Lab Results 01/02/18 01/02/18 01/02/18 07:03 10:55 13:13 WBC 11.0 Hgb 13.7 Hct 39.7 Plt Count 121 L APTT 100.6 H D Sodium Potassium Chloride Carbon Dioxide BUN Creatinine Glucose Calcium Magnesium Troponin I 0.48 H* 01/02/18 01/02/18 01/03/18 17:52 20:23 02:10 WBC 10.0 Hgb 12.5 Hct 36.0 Plt Count 130 L APTT 97.8 H Sodium Potassium Chloride Carbon Dioxide BUN Creatinine Glucose Calcium Magnesium Troponin I 0.30 H* 01/03/18 01/03/18 02:10 02:10 WBC Hgb Hct Plt Count APTT 85.2 H Sodium 137 Potassium 3.7 Chloride 104 Carbon Dioxide 25 BUN 12 Creatinine 0.52 L Glucose 108 H Calcium 8.9 Magnesium 1.7 Troponin I - Imaging and Cardiology Echo: report reviewed - EKG Interpretation EKG results cardiology: personally reviewed Consult Discharge Plan - Plan Referrals: Navdeep Franco MD [Primary Care Provider] -
[2018-01-03] MEDS ORDERED: *HR* Midazolam HCl 2 MG/2 ML VIAL ONE ×2 (14:59→15:36)
[2018-01-03] MEDS ORDERED: Heparin 1,000 UNITS/500 mL 500 ML ONE (16:14)
[2018-01-03] MEDS ORDERED: *HR* Heparin 10,000 UNIT/10 ML VIAL ONE (16:14)
[2018-01-03] MEDS ORDERED: ISOVUE-370 200 ML INFUS..BTL IV ONE (16:15)
[2018-01-03] MEDS ORDERED: 0.9 % Sodium Chloride 1,000 ML IVC SCH (16:15)
[2018-01-03] MEDS ORDERED: *HR* Ticagrelor 90 MG TABLET ONE (16:19)
--- NOTE | 2018-01-03 16:22 | Pre-Sedation Evaluation ---
Pre-sedation evaluation - Pre-sedation checklist Date of procedure: 01/03/18 Procedure: left heart caTH Recent Vitals: Last Vital Signs Temp 97.5 F L 01/03/18 11:44 Pulse 69 01/03/18 11:44 Resp 16 01/03/18 11:44 BP 117/53 01/03/18 11:44 Pulse Ox 95 01/03/18 11:44 H&P (including ROS) documented in medical record: Yes Previous reaction to sedatives/anesthetics: No Dietary Status: NPO 6 hours prior to procedure Airway Assessment: Patient can open mouth completely, TMJ function normal Dentition: No loose teeth or bridges Possible difficult airway: No ASA Classification *see protocol: CLASS II-Mild systemic disease Plan of Care: Pt appropriate candidate for procedure/moderate/conscious sedation , Risks/benefits of procedure/sedation discussed w/ patient/family, If not NPO; Risk of intake outweiged by necessity to perform procedure
--- NOTE | 2018-01-03 16:25 | Invasive Diagnostic Lab Proc ---
Name: Kyle Montenegro Date of Study: 01/03/2018 Date: 1950 Ht: 65.0in Medical Record#: [id number] Age: 67 Wt: 154.32lb Gender: Female BSA: 1.77 Order #: [id number] BMI: 25.71 Physicians Procedure Physician: Marc Aquino DO Referring MD: Referring MD: Staff Name Position Time In Monalisa Junior RT (R) Monitor 03:01 PM Sergio Duong RN Vertical Mill Operator 03:01 PM [facility], Sulma RT (R) Scrub 03:01 PM Indications Indication Non-Stemi Procedures Performed Procedure L HRT ARTERY/VENTRICLE ANGIO PRQ CARD TEVIN STENT W/ANGIO 1 VSL PRQ CARD TEVIN STENT W/ANGIO 1 VSL Pre-Procedure Checklist Informed consent is complete signed and on chart. H&P is on chart. ID band is on and ID verified with patient. Patient NPO for procedure The procedure was described for the patient and questions were answered. Blood Pressure: 117/53 ECG is on chart. Rhythm: NSR Plan of Care Patient will tolerate the procedure without complications. Adequate level of comfort will be maintained. Hemodynamics will remain stable Patient will recover from procedure without complications. Respiratory function will be maintained. Cardiac rhythm will remain stable. Patient temperature will be maintained. Patient and/or family have verbalized understanding of the procedure. Patient Education Chief Complaint/Reason for Test: Cardiac Cath Developmental Category: Geriatric (65+ years) Developmentally Appropriate for Age: Yes Learning Barriers: None Education Needs: Procedure Education Method: Verbal Information Taught: Cardiac Cath Educational Evaluation: Able to repeat information Intravenous Access Time IV Size Location DC'd Fluid/Drip Rate Units RN 03:03 PM 20g 1 11/07" Patent On Arrival Rt Arm 0.9NaCl 25 ml/hr Sergio Duong RN Allergies BEES Vital Signs Time BP (mmHg) HR (bpm) O2 Sat. RR (bpm) LOC 03:03 PM 117 / 53 69 95 % 16 5 = Fully awake and oriented or at pre-proc level 03:03 PM 131 / 62 62 96 % 15 4 = Oriented but drowsy 03:02 PM / % 4 = Oriented but drowsy 03:17 PM / % 4 = Oriented but drowsy 03:32 PM / % 4 = Oriented but drowsy 03:47 PM / % 4 = Oriented but drowsy 03:00 PM 131 / 62 62 % 15 03:04 PM 110 / 52 67 94 % 13 03:09 PM 122 / 59 67 91 % 0 03:14 PM 113 / 71 68 95 % 6 03:19 PM 131 / 72 65 90 % 16 03:25 PM 142 / 62 62 91 % 03:29 PM 128 / 58 63 94 % 03:34 PM 146 / 68 62 93 % 22 03:38 PM 116 / 94 70 93 % 8 03:44 PM 144 / 49 64 92 % 32 03:49 PM 142 / 72 63 95 % 03:54 PM 161 / 58 64 92 % 27 03:59 PM 157 / 60 62 94 % 24 04:04 PM 153 / 65 65 94 % 27 04:03 PM / % 4 = Oriented but drowsy Procedural Medications Time Medication Dose Units Method Given By 03:02 PM Oxygen 2 L/min nasal cannula Sergio Duong RN 03:02 PM Versed 2 mg Intravenous Sergio Duong RN 03:32 PM Lidocaine 2% 10 ml Subcutaneous Marc Aquino DO 03:35 PM Versed 1 mg Intravenous Sergio Duong RN 03:50 PM Heparin 3000 units Intravenous Sergio Duong RN 04:06 PM Brilinta 180 mg Orally Sergio Duong RN ASA Classification: CLASS II- Mild systemic disease (i.e. well-controlled diabetes, hypertension, asthma, cigarette smoking) Joe Score Preprocedure Postprocedure Activity 2- Moves 4 extremities sustained head lift Activity 2- Moves 4 extremities sustained head lift Circulation 2- SBP +/= 20 points of pre-anesthetic level Circulation 2- SBP +/= 20 points of pre-anesthetic level Consciousness 2- Awake and alert oriented x 3 Consciousness 2- Awake and alert oriented x 3 O2 Saturation 2- Able to maintain O2 satruation of 92% on room air O2 Saturation 2- Able to maintain O2 satruation of 92% on room air Respiratory 2- Able to deep breathe and cough well Respiratory 2- Able to deep breathe and cough well Total Score 10 Total Score 10 Contrast Agent: Isovue Diagnostic Contrast: 100 ml Total Contrast: 100 ml Fluoro Dose: 623 mGy Activated Clotting Time Time Seconds to Clot 03:49 PM 93 03:59 PM 400 Procedure Log Time Note Enter By 01:44 PM CathStat 02:26 PM 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 paint 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 technician 2 at 14:26 [email or web address] 02:52 PM Physician arrived 14:52 [email or web address] 02:52 PM Meet and greet completed [email or web address] 02:52 PM Procedure start 14:52 [email or web address] 02:58 PM Vitals capture started with the following parameters, Patient=Adult, Interval=5 min, Initial Gobndjhr=179 mmHg, Deflation Rate=5 mmHg, Cuff placed on Right Arm 03:00 PM HR=62 bpm, DQAI=003/62 mmhg, Resp=15 B/min, Comment=NSR 03:00 PM Recorded ECG: HR=61 Condition=Condition 1 03:01 PM Monalisa Junior RT (R) Position: Monitor Time in: 15:01 [email or web address] 03:01 PM Sergio Duong RN Position: Vertical Mill Operator Time in: 15:01 [email or web address] 03:01 PM Sulma Moses RT (R) Position: Scrub Time in: 15:01 [email or web address] 03:01 PM Patient charges- Angio tray pack, Navilyst 3mm J, Pulse Oximetry and ACIST tubing and transducer [email or web address] 03:01 PM Case Delayed No [email or web address] 03:01 PM Hair removed from procedure site in holding area using clippers. Bilateral groin prepped with Chloraprep by Monalisa Junior RT (R), then patient was draped. Skin intact. [email or web address] 03:01 PM Karolina completed [email or web address] 03:01 PM Sign in performed according to hospital policy. [email or web address] 03:01 PM Procedure start 15:01 [email or web address] 03:02 PM Time: 15:02 Oxygen on at 2 L/min per nasal cannula by Sergio Duong RN [email or web address] 03:02 PM Time: 15:02 Versed 2 mg Intravenous Given by Sergio Duong RN [email or web address] 03:02 PM Time: 15:02 Patient comfortable and pain free: Yes [email or web address] 03:02 PM Time: 15:02LOC: 4 = Oriented but drowsy [email or web address] 03:04 PM HR=67 bpm, BNSA=757/52 mmhg, SpO2=94.0 %, Resp=13 B/min, Comment=NSR 03:09 PM HR=67 bpm, AULL=103/59 mmhg, SpO2=91.0 %, Resp=0 B/min, Comment=NSR 03:10 PM Pressure channel 2 zeroed. 03:14 PM HR=68 bpm, CAHZ=835/71 mmhg, SpO2=95.0 %, Resp=6 B/min, Comment=NSR 03:17 PM Time: 15:02 Patient comfortable and pain free: Yes [email or web address] 03:17 PM Time: 15:02LOC: 4 = Oriented but drowsy [email or web address] 03:19 PM HR=65 bpm, OZZK=693/72 mmhg, SpO2=90.0 %, Resp=16 B/min, Comment=NSR 03:25 PM HR=62 bpm, YZAD=455/62 mmhg, SpO2=91.0 %, Comment=NSR 03:29 PM HR=63 bpm, YHUL=593/58 mmhg, SpO2=94.0 %, Comment=NSR 03:32 PM Time out performed according to hospital policy [email or web address] 03:32 PM Time: 15:17 Patient comfortable and pain free: Yes [email or web address] 03:32 PM Time: 15:17LOC: 4 = Oriented but drowsy [email or web address] 03:32 PM Time: 15:32 10 ml Lidocaine 2% to right groin Subcutaneous Given by Marc Aquino DO [email or web address] 03:34 PM HR=62 bpm, IMTQ=512/68 mmhg, SpO2=93.0 %, Resp=22 B/min, Comment=NSR 03:35 PM Time: 15:35 Versed 1 mg Intravenous Given by Sergio Duong RN [email or web address] 03:37 PM Micro-Introducer Kit utilized for sheath placement [email or web address] 03:38 PM Access obtained by percutaneous puncture. 6Fr 10cm Terumo [place] sheath placed in right Femoral artery. [id number] [email or web address] 03:38 PM 5Fr FR 4 catheter inserted over the wire DNC [email or web address] 03:38 PM 0.035 145cm Navilyst 3mmJ wire [id number] [email or web address] 03:38 PM Catheter selectively placed in left ventricle [email or web address] 03:38 PM Bolus angiogram of left Ventricle complete: 10 ml/sec for a total of 20 mls [email or web address] 03:38 PM HR=70 bpm, WLRU=709/94 mmhg, SpO2=93.0 %, Resp=8 B/min, Comment=NSR 03:39 PM Recorded Pressure: LV, HR=56, Condition=Condition 1 (Left Ventricle) LV 119/34/39 03:39 PM Recorded Pressure: LV, Ao, HR=66, Condition=Condition 1 (Left Ventricle) LV 135/0/11, (Aorta) Ao 155/49/104 03:40 PM RCA angiography performed in multiple views. [email or web address] 03:40 PM Catheter removed [email or web address] 03:40 PM Lesion found in Mid RCA. Pre Stenosis: 85 Pre HARISH Flow: 3: Complete and Brisk Flow/Perfusion [email or web address] 03:41 PM 5Fr FL 4 catheter inserted over the wire [facility] [email or web address] 03:41 PM LCA angiography performed in multiple views. [email or web address] 03:41 PM Recorded Pressure: Ao, HR=66, Condition=Condition 1 (Aorta) Ao 152/61/97 03:42 PM Recorded Pressure: Ao, HR=68, Condition=Condition 1 (Aorta) Ao 153/63/97 03:43 PM Lesion found in Proximal LAD. Pre Stenosis: 80 Pre HARISH Flow: 3: Complete and Brisk Flow/Perfusion [email or web address] 03:43 PM Catheter removed [email or web address] 03:44 PM 6Fr JL4 Runway guide catheter was used to cannulate the PCI vessel successfully. reused? No [email or web address] 03:44 PM .014 ChoICE PT Extra Support 300cm guide wire across target lesion- successful. reused? No [email or web address] 03:44 PM HR=64 bpm, UJJD=323/49 mmhg, SpO2=92.0 %, Resp=32 B/min, Comment=NSR 03:45 PM Inflation device was opened. [email or web address] 03:47 PM Time: 15:32LOC: 4 = Oriented but drowsy [email or web address] 03:47 PM Time: 15:32 Patient comfortable and pain free: Yes [email or web address] 03:48 PM 2.5mm x 20mm Synergy drug-eluting stent across target lesion- successful Lot #[id number] [email or web address] 03:49 PM HR=63 bpm, MGZZ=135/72 mmhg, SpO2=95.0 %, Comment=NSR 03:50 PM At 15:49 the ACT was 93 seconds. [email or web address] 03:50 PM Time: 15:50 Heparin 3000 units Intravenous Given by Sergio Duong RN [email or web address] 03:51 PM Stent deployed. inflated @ 16 too for 17 seconds [email or web address] 03:52 PM Stent delivery system removed intact. [email or web address] 03:52 PM Recorded Pressure: Ao, HR=66, Condition=Condition 1 (Aorta) Ao 188/73/119 03:53 PM Guide catheter removed intact. [email or web address] 03:53 PM Guide wire removed intact. [email or web address] 03:53 PM 6Fr JR 4 Runway guide catheter was used to cannulate the PCI vessel successfully. reused? No [email or web address] 03:54 PM HR=64 bpm, LFHK=038/58 mmhg, SpO2=92.0 %, Resp=27 B/min, Comment=NSR 03:58 PM Guidewire re-inserted. [email or web address] 03:58 PM Recorded Pressure: Ao, HR=64, Condition=Condition 1 (Aorta) Ao 159/61/98 03:58 PM 2.5mm x 12mm Synergy drug-eluting stent across target lesion- successful Lot #[id number] [email or web address] 03:59 PM HR=62 bpm, PNMT=768/60 mmhg, SpO2=94.0 %, Resp=24 B/min, Comment=NSR 04:00 PM At 15:59 the ACT was 400 seconds. [email or web address] 04:02 PM Stent deployed @ 16 too for 16 seconds [email or web address] 04:03 PM Time: 15:47 Patient comfortable and pain free: Yes [email or web address] 04:03 PM Time: 15:47LOC: 4 = Oriented but drowsy [email or web address] 04:03 PM Stent delivery system removed intact. [email or web address] 04:03 PM Guide wire removed intact. [email or web address] 04:04 PM HR=65 bpm, ODWJ=784/65 mmhg, SpO2=94.0 %, Resp=27 B/min, Comment=NSR 04:04 PM Bolus angiogram of right Femoral complete: 4 ml/sec for a total of 7 mls [email or web address] 04:05 PM Procedure completed at 16:05 [email or web address] 04:05 PM Coronary Dominance: right [email or web address] 04:05 PM Did you address HARISH flow and Dominance? Yes [email or web address] 04:05 PM Sign out completed: Radiation Dose 623.01 mGy Fluoro Time: 8.2 Isovue 370 - 200ml contrast 100 ml given by Marc Aquino DO. Complications: NoneCardiac Rehab Consult needed: YesConfirmed administered medications: Yes [email or web address] 04:05 PM Isovue 370 - 200ml,1 Bottle(s) used. [email or web address] 04:05 PM Arterial sheath pulled, Angio-seal closure device used and was Successful S/N. [email or web address] 04:05 PM Estimated Blood Loss: minimal [email or web address] 04:05 PM Post ECG NSR [email or web address] 04:06 PM Time: 16:06 Brilinta 180 mg Orally Given by Sergio Duong RN [email or web address] 04:07 PM Post Blood Pressure 153/65 [email or web address] 04:08 PM Information taught Cardiac Cath, PCI, and Angioseal [email or web address] 04:08 PM Education needs Procedure, Plan of Care, and Disease Process [email or web address] 04:08 PM Learning barriers :None [email or web address] 04:08 PM Education Methods Verbal [email or web address] 04:08 PM Education evaluation Able to repeat information [email or web address] 04:08 PM Site status No bleeding/hematoma - Rt Groin as reported by Sites, Sulma RT (R) at 16:08 [email or web address] 04:08 PM Opsite applied [email or web address] 04:08 PM Delay to floor No [email or web address] 04:08 PM Family placed in not available. [email or web address] 04:08 PM Complications: None [email or web address] 04:08 PM Fluoro Time: 8.2 [email or web address] 04:08 PM Isovue 370 - 200ml contrast 100 ml given by Marc Aquino DO. [email or web address] 04:09 PM Radiation Dose 623.01 mGy [email or web address] 04:15 PM ASA Class CLASS II- Mild systemic disease (i.e. well-controlled diabetes, hypertension, asthma, cigarette smoking) [email or web address] 04:17 PM Report given to Claire BLAND Pt taken to 2NE Room #16. 16:17 [email or web address] 04:17 PM Delay to floor No [email or web address] 04:17 PM Patient out of room: 16:17 [email or web address] 04:17 PM Complications: None [email or web address] 04:18 PM Time: 16:03LOC: 4 = Oriented but drowsy [email or web address] 04:18 PM Time: 16:03 Patient comfortable and pain free: Yes [email or web address] Complications Complication None None None Hemodynamics Pressures Site Systolic/A Wave Diastolic/V Wave Mean LV 119 34 39 LV 135 0 11 AO 155 49 104 AO 152 61 97 AO 153 63 97 AO 188 73 119 AO 159 61 98 Post Procedure Information Blood Pressure: 153/65 mmHg Rhythm: NSR Post procedural instructions were given Closure Device Time Device Success/Fail 01/03/2018 4:05:00 PM Angio-Seal VIP Successful Site Checks Time Location Status Staff Sheath In? Note 04:08 PM Rt Groin No bleeding/hematoma Sites, Sulma RT (R) Pulses Time Site Pre-Procedure Post-Procedure Note 01/03/2018 3:03:00 PM Bilateral DP & PT 2+ 2+ Updated by Monalisa Junior, RT(R) on 01/03/2018 4:19:55 PM electronically signed on 01/03/2018 4:20:34 PM with status of Final
[2018-01-03] MEDS ORDERED: ALPRAZolam 0.25 MG TABLET PO ONE (18:48)
--- NOTE | 2018-01-03 20:39 | Electrocardiograph Report ---
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
[2018-01-03] MEDS: *HR* Ticagrelor 90 MG TABLET PO SCH (20:57)
[2018-01-04] MEDS: Azithromycin 500 MG in D5% in Water 250 ML IVPB SCH (01:55)
[2018-01-04] MEDS: Ipratropium/Albuterol Neb 3 ML IH SCH ×6 (03:10→23:23)
[2018-01-04 05:31] LABS: Basophils % 0.2 %; Eosinophils # 0.1 K/mcL (0.0-0.6); Eosinophils % 0.8 %; Hemoglobin 12.7 g/dL (11.5-15.4); Lymphocytes # 2.5 K/mcL (0.6-4.6); Lymphocytes % 28.8 %; Mean Corpuscular HGB Conc 35.3 g/dL (31.6-35.5); Mean Corpuscular Volume 87.8 fL (83.0-100.0); Monocytes % 11.5 %; Neutrophils # 5.1 K/mcL (1.6-8.9); Platelet Count 195 K/mcL (140-400); Red Cell Distribution Width 13.1 % (11.5-14.5); Segmented Neutrophils % 57.7 %
[2018-01-04 05:42] LABS: BUN/Creatinine Ratio 21 (6-26); Blood Urea Nitrogen 10 mg/dL (8-23); Calcium 8.8 mg/dL (8.6-10.3); Carbon Dioxide 27 mEq/L (23-29); Chloride 102 mEq/L (98-107); Glucose 105 mg/dL (70-105); Osmolality,Calculated 285 (280-300); Potassium 3.2 mEq/L (3.5-5.1); Sodium 138 mEq/L (136-145); eGFR For Non-African Americans > 60 (> 60)
[2018-01-04] MEDS: cefTRIAXone 1,000 MG in Water for inj. (sterile) 20 ML 10 ML IVP SCH (05:48)
[2018-01-04 06:25] LABS: Platelet Estimate Normal (Normal)
[2018-01-04 06:26] LABS: Macrocytosis Present (Not Present); Reactive Lymphocytes Present (Not Present)
--- NOTE | 2018-01-04 09:33 | Cardiology Progress Note ---
Date of Encounter: 01/04/18 Time of Encounter: 09:20 Assessment and Plan (1) Elevated troponin Current Visit: Yes Status: Acute Mild troponin elevation up to 0.48 possible NSTEMI vs type II MO from respiratory distress in the setting of influenza B. TTE: LVEF 60%, normal wall motion, no significant valvular dysfunction. [facility] 01/03/18: s/p successful PTCA/TEVIN to pLAD and mRCA; otherwise non-obstructive CAD. Emphasis placed on importance of uninterrupted DAPT (asa + brilinta) for a minimum of 1 year--pt verbalized understanding. 30-day coupon card provided. Continue statin, betablocker. Episode of bradycardia noted during nocturnal hours, max 2.[address] Brownlee, recommend additional 24 hours of inpatient/telemetry monitoring and decrease coreg to 12.5 mg BID. Post PCI education provided including care of site. Will continue to follow. Will coordinate outpt. follow-up. (2) CAD (coronary artery disease) Current Visit: Yes Status: Acute H/o MO and 3 cardiac stents in 2006. Continue asa, statin, and bb. Qualifiers: Coronary Disease-Associated Artery/Lesion type: solomon artery [place] vs. transplanted heart: solomon heart Associated angina: without angina Qualified Code(s): I25.10 - Atherosclerotic heart disease of solomon coronary artery without angina pectoris Discussion w patient/family: The assessment and plan as outlined above was discussed with the patient and/or family members who expressed understanding and agreement. All questions were answered. Thank you for involving us in the care of your patient. Please call with any questions. The patient will be discussed and reviewed with Dr. Brownlee; Cardiology will sign -off. Subjective Principal diagnosis: NSTEMI Interval history: Seen and examined. No issues overnight. No recurrent chest pain/discomfort. Objective Vital Signs, Last 4 Hours Temp Pulse Resp BP Pulse Ox 01/04/18 07:16 16 151/72 97 01/04/18 06:49 97.9 F 71 18 151/72 97 General: Conversant, No Apparent Distress HEENT: Atraumatic, Normocephaly, Mucus Membranes Moist Cardiac: Reg Rate and Rhythm, Normal S1 and S2 Lungs: Normal Breath Sounds Neuro: Alert and responsive Abdomen: Soft Skin: No rashes noted on visualized skin Musculoskeletal: No Chest Wall Tenderness Extremities: No Edema, Normal Pulses Other: right groin cath site: no hematoma, bruising or bleeding noted. Tender to touch. +2 DP/PT pulses Results 01/04/18 04:58 01/04/18 04:58 Lab Results 01/03/18 01/04/18 01/04/18 10:30 04:58 04:58 WBC 8.8 Hgb 12.7 Hct 36.0 Plt Count 195 APTT 58.2 H Sodium 138 Potassium 3.2 L Chloride 102 Carbon Dioxide 27 BUN 10 Creatinine 0.48 L Glucose 105 Calcium 8.8 Active Medications Acetaminophen (Tylenol) 650 mg PO Q6HR PRN PRN Reason: Mild Pain/Fever Stop: 07/03/18 01:26 Last Admin: 01/01/18 08:44 Dose: 650 mg Albuterol/Ipratropium (Duoneb) 3 ml IH [id number] MAAME Stop: 07/04/18 12:01 Last Admin: 01/04/18 07:16 Dose: 3 ml Aspirin (Aspirin) 81 mg PO DAILY MAAME Stop: 07/06/18 09:01 Carvedilol (Coreg) 12.5 mg PO BIDWM MAAME Stop: 07/06/18 17:01 Cyanocobalamin (Vitamin B12) 1,000 mcg PO DAILY MAAME Stop: 07/03/18 09:01 Last Admin: 01/03/18 09:24 Dose: 1,000 mcg Furosemide (Lasix) 40 mg IVP DAILY MAAME Stop: 07/05/18 09:01 Last Admin: 01/03/18 09:26 Dose: 40 mg Guaifenesin (Robitussin/Dm) 10 ml PO Q6HR PRN PRN Reason: Cough Stop: 07/03/18 00:16 Last Admin: 01/03/18 06:31 Dose: 10 ml Azithromycin 500 mg/ Dextrose 250 mls @ 252 mls/hr IVPB Q24H MAAME Stop: 07/03/18 02:01 Last Admin: 01/04/18 01:55 Dose: 252 mls/hr Ceftriaxone Sodium 1,000 mg/ (Sterile Water) 10 mls @ 300 mls/hr IVP Q24H MAAME Stop: 07/03/18 02:01 Last Admin: 01/04/18 05:48 Dose: 300 mls/hr Lisinopril (Zestril) 10 mg PO DAILY MAAME PRN Reason: Protocol Stop: 07/03/18 09:01 Last Admin: 01/03/18 09:26 Dose: 10 mg Naloxone HCl (Narcan) 0.4 mg IVP Q2MIN PRN PRN Reason: SEE COMMENTS Stop: 07/03/18 01:26 Omeprazole (Prilosec) 20 mg PO 0630 MAAME PRN Reason: Protocol Stop: 07/03/18 06:31 Last Admin: 01/04/18 05:49 Dose: 20 mg Oseltamivir Phosphate (Tamiflu) 75 mg PO BID MAAME Stop: 01/05/18 09:01 Last Admin: 01/03/18 20:57 Dose: 75 mg Simvastatin (Zocor) 40 mg PO HS MAAME PRN Reason: Protocol Stop: 07/03/18 21:01 Last Admin: 01/03/18 20:57 Dose: 40 mg Ticagrelor (Brilinta) 90 mg PO BID MAAME Stop: 07/05/18 21:01 Last Admin: 01/03/18 20:57 Dose: 90 mg Vitamin B Complex/Vit C/Vit E (Stresstab) 1 each PO DAILY MAAME Stop: 07/03/18 09:01 Last Admin: 01/03/18 09:26 Dose: 1 each Vitamin D (Vitamin D) 1,000 unit PO DAILY MAAME Stop: 07/03/18 09:01 Last Admin: 01/03/18 09:26 Dose: 1,000 unit - Imaging and Cardiology Echo: report reviewed Cardiac cath: report reviewed Other Results: 12 hour tele: avg HR=64. - EKG Interpretation EKG results cardiology: personally reviewed Consult Discharge Plan - Plan Referrals: Navdeep Franco MD [Primary Care Provider] -
[2018-01-04] MEDS: *HR* Ticagrelor 90 MG TABLET PO SCH ×2 (10:00→20:40)
[2018-01-04] MEDS: Furosemide 40 MG/4 ML VIAL IVP SCH (10:00)
[2018-01-04] MEDS: Aspirin 81 MG TAB.CHEW PO SCH (10:00)
[2018-01-04] MEDS: Cholecalciferol (D-3) 1,000 UNIT TABLET PO SCH (10:00)
[2018-01-04] MEDS: Vitamin B Complex/Vit C/Vit E 1 EACH TABLET PO SCH (10:00)
[2018-01-04] MEDS: Cyanocobalamin (B-12) 1,000 MCG TABLET PO SCH (10:01)
--- NOTE | 2018-01-04 13:35 | Internal Med Progress Note ---
Date of Encounter: 01/04/18 Time of Encounter: 13:31 - Assessment and plan (1) Acute respiratory failure with hypoxia Current Visit: Yes Status: Acute Assessment and plan: multiple factors including pneumonia, influenza and pulmonary edema. Had significant improvement with diuresis. O2 support as needed. Nebs. Repeat chest x-ray showed improvement in pulmonary edema. Tamiflu 7 of 9 doses given Continue Rocephin Azithro course is complete (2) Pneumonia Current Visit: Yes Status: Acute Assessment and plan: Cultures have been negative. O2 support as needed. Continue nebulizers. Continue Rocephin Azithromycin course is complete Qualifiers: Pneumonia type: due to Pneumococcus Laterality: left Lung location: lower lobe of lung Qualified Code(s): J13 - Pneumonia due to Streptococcus pneumoniae (3) BREANA (acute kidney injury) Current Visit: Yes Status: Acute Assessment and plan: Resolved. IVF have stopped. Continue to monitor. (4) CAD (coronary artery disease) Current Visit: Yes Status: Acute Assessment and plan: Off heparin drip post [facility] 01/03/18 Continue aspirin, beta radha, statin. Qualifiers: Coronary Disease-Associated Artery/Lesion type: i[place]quois artery [place] vs. transplanted heart: iroquois heart Associated angina: without angina Qualified Code(s): I25.10 - Atherosclerotic heart disease of iroquois coronary artery without angina pectoris (5) Influenza Current Visit: Yes Status: Acute Assessment and plan: Continue Tamiflu (6) Elevated troponin Current Visit: Yes Status: Acute Assessment and plan: Trops trended up to 0.48 and have decreased to 0.30. Cardiology is following. Echo with an EF of 60% with mild pulmonary hypertension. [facility] 01/03/18 s/p stents. Off heparin drip, on DAPT (7) DVT prophylaxis Current Visit: Yes Status: Acute - Subjective Interval history: Patient states she is feeling great, she is ambulating around in her room. Overight she had episode of bradycardia with2.9 second pause, she was asymptomatic during that time. Coreg dose decreased today. - Constitutional Vitals: Temp Pulse Resp BP Pulse Ox 97.9 F 66 16 141/76 92 01/04/18 11:02 01/04/18 11:02 01/04/18 12:32 01/04/18 12:32 01/04/18 12:32 General appearance: Present: mild distress, A&O X 3, answers questions appropriately - Head Head exam: Present: atraumatic, normocephalic - Eye Eye exam: Present: PERRL, conjuntiva pink, sclera anicteric Pupils: Present: PERRL - Neck Neck exam general surgery: Present: supple, trachea midline. Absent: lymphadenopathy - Respiratory Respiratory exam: Present: CTAB. Absent: accessory muscle use, rales, rhonchi, wheezes - Cardiovascular Cardiovascular exam: Present: RRR, +S1, +S2. Absent: diastolic murmur, gallop, rubs, systolic murmur - GI/Abdominal GI/Abdominal exam: Present: normal bowel sounds, soft, no peritoneal signs. Absent: distended, tenderness - Extremities Exam Extremities exam: Present: warm, radial pulses palpable and symmetrical. Absent : calf tenderness, cyanotic, pedal edema - Neurological Exam Neurological exam: Present: CN II-XII intact, oriented X3, no focal deficits. Absent: pronater drift, facial droop, speech deficit - Skin Skin exam: Present: dry, intact Internal Medicine: Result - Labs CBC & Chem 7: 01/04/18 04:58 01/04/18 04:58 Labs: Short CBC 01/04/18 Range/Units 04:58 WBC 8.8 (4.3-11.1) K/mcL Hgb 12.7 (11.5-15.4) g/dL Hct 36.0 (35.3-44.9) % Plt Count 195 (140-400) K/mcL Neutrophils # 5.1 (1.6-8.9) K/mcL BMP 01/04/18 04:58 Sodium 138 Potassium 3.2 L Chloride 102 Carbon Dioxide 27 BUN 10 Creatinine 0.48 L Glucose 105 Calcium 8.8 - ABG Interpretation ABG results: ABG ABG pH 7.48 pH Units (7.32-7.45) H 01/02/18 08:24 ABG pCO2 34 mmHg (35-45) L 01/02/18 08:24 ABG pO2 89 mmHg (85-104) 01/02/18 08:24 ABG O2 Saturation 98 % (95-98) 01/02/18 08:24 PT/INR, D-dimer PT 12.8 Seconds (9.4-12.1) H 01/02/18 07:03 Consult Discharge Plan - Plan Referrals: Navdeep Franco MD [Primary Care Provider] -
[2018-01-05] MEDS: Ipratropium/Albuterol Neb 3 ML IH SCH ×3 (03:24→11:20)
[2018-01-05] MEDS: cefTRIAXone 1,000 MG in Water for inj. (sterile) 20 ML 10 ML IVP SCH (05:39)
[2018-01-05 07:58] VITALS: BP 156/72
[2018-01-05 08:07] LABS: BUN/Creatinine Ratio 24 (6-26); Blood Urea Nitrogen 14 mg/dL (8-23); Calcium 9.1 mg/dL (8.6-10.3); Carbon Dioxide 23 mEq/L (23-29); Chloride 101 mEq/L (98-107); Glucose 125 mg/dL (70-105); Osmolality,Calculated 284 (280-300); Potassium 3.3 mEq/L (3.5-5.1); Sodium 136 mEq/L (136-145); eGFR For Non-African Americans > 60 (> 60)
--- NOTE | 2018-01-05 08:43 | Cardiology Progress Note ---
Date of Encounter: 01/05/18 Time of Encounter: 08:15 Assessment and Plan (1) Elevated troponin Current Visit: Yes Status: Acute Mild troponin elevation up to 0.48 possible NSTEMI vs type II MO from respiratory distress in the setting of influenza B. TTE: LVEF 60%, normal wall motion, no significant valvular dysfunction. [facility] 01/03/18: s/p successful PTCA/TEVIN to pLAD and mRCA; otherwise non-obstructive CAD. Emphasis placed on importance of uninterrupted DAPT (asa + brilinta) for a minimum of 1 year--pt verbalized understanding. 30-day coupon card provided. Continue statin, betablocker. Episode of bradycardia noted during nocturnal hours, max 2.9 seconds on 01/04/18. No further pauses noted. Telemetry reviewed, avg HR=71. Continue decreased dose of coreg 12.5 BID. Post PCI education provided including care of site. No further inpatient recommendations. Cardiology will sign-off. Will coordinate outpt. follow-up. (2) CAD (coronary artery disease) Current Visit: Yes Status: Acute H/o MO and 3 cardiac stents in 2006. Continue asa, statin, and bb. Qualifiers: Coronary Disease-Associated Artery/Lesion type: [place] artery [place] vs. transplanted heart: [place] heart Associated angina: without angina Qualified Code(s): I25.10 - Atherosclerotic heart disease of [place] coronary artery without angina pectoris (3) Essential hypertension Current Visit: Yes Status: Acute BP does not appear adequately controlled. Coreg decreased yesterday d/t bradycardia. Will increase ACEi today. Further recommendations at discretion of primary service. Discussion w patient/family: The assessment and plan as outlined above was discussed with the patient and/or family members who expressed understanding and agreement. All questions were answered. Thank you for involving us in the care of your patient. Please call with any questions. The patient will be discussed and reviewed with Dr. Brownlee; Cardiology will sign -off. Subjective Principal diagnosis: NSTEMI Interval history: Seen and examined. No issues overnight. No recurrent chest pain/discomfort. Denies dizziness/ lightheadedness. No issues with right groin cath site. Objective Vital Signs, Last 4 Hours Temp Pulse Resp BP Pulse Ox 01/05/18 07:54 98.1 F 84 16 156/72 92 01/05/18 07:22 16 156/72 96 General: Conversant, No Apparent Distress HEENT: Atraumatic, Normocephaly, Mucus Membranes Moist Neck: No JVD, Normal carotid pulses Cardiac: Reg Rate and Rhythm, Normal S1 and S2, No Murmur Lungs: Normal Breath Sounds, No Wheeze, Rales, Rhonchi Neuro: Alert and responsive, No focal deficits noted Abdomen: Soft, Non-Tender Skin: No rashes noted on visualized skin Musculoskeletal: No Chest Wall Tenderness Extremities: No Clubbing, No Cyanosis, No Edema, Normal Pulses Results 01/04/18 04:58 01/05/18 06:26 Lab Results 01/05/18 06:26 Sodium 136 Potassium 3.3 L Chloride 101 Carbon Dioxide 23 BUN 14 Creatinine 0.58 L Glucose 125 H Calcium 9.1 Active Medications Acetaminophen (Tylenol) 650 mg PO Q6HR PRN PRN Reason: Mild Pain/Fever Stop: 07/03/18 01:26 Last Admin: 01/01/18 08:44 Dose: 650 mg Albuterol/Ipratropium (Duoneb) 3 ml IH [id number] MAAME Stop: 07/04/18 12:01 Last Admin: 01/05/18 07:22 Dose: 3 ml Aspirin (Aspirin) 81 mg PO DAILY MAAME Stop: 07/06/18 09:01 Last Admin: 01/04/18 10:00 Dose: 81 mg Carvedilol (Coreg) 12.5 mg PO BIDWM MAAME Stop: 07/06/18 17:01 Last Admin: 01/04/18 16:59 Dose: 12.5 mg Cyanocobalamin (Vitamin B12) 1,000 mcg PO DAILY MAAME Stop: 07/03/18 09:01 Last Admin: 01/04/18 10:01 Dose: 1,000 mcg Furosemide (Lasix) 40 mg IVP DAILY MAAME Stop: 07/05/18 09:01 Last Admin: 01/04/18 10:00 Dose: 40 mg Guaifenesin (Robitussin/Dm) 10 ml PO Q6HR PRN PRN Reason: Cough Stop: 07/03/18 00:16 Last Admin: 01/03/18 06:31 Dose: 10 ml Ceftriaxone Sodium 1,000 mg/ (Sterile Water) 10 mls @ 300 mls/hr IVP Q24H MAAME Stop: 07/03/18 02:01 Last Admin: 01/05/18 05:39 Dose: 300 mls/hr Lisinopril (Zestril) 10 mg PO DAILY MAAME PRN Reason: Protocol Stop: 07/03/18 09:01 Last Admin: 01/04/18 10:01 Dose: 10 mg Naloxone HCl (Narcan) 0.4 mg IVP Q2MIN PRN PRN Reason: SEE COMMENTS Stop: 07/03/18 01:26 Omeprazole (Prilosec) 20 mg PO 0630 MAAME PRN Reason: Protocol Stop: 07/03/18 06:31 Last Admin: 01/05/18 05:39 Dose: 20 mg Oseltamivir Phosphate (Tamiflu) 75 mg PO BID MAAME Stop: 01/05/18 09:01 Last Admin: 01/04/18 20:41 Dose: 75 mg Simvastatin (Zocor) 40 mg PO HS MAAME PRN Reason: Protocol Stop: 07/03/18 21:01 Last Admin: 01/04/18 20:41 Dose: 40 mg Ticagrelor (Brilinta) 90 mg PO BID MAAME Stop: 07/05/18 21:01 Last Admin: 01/04/18 20:40 Dose: 90 mg Vitamin B Complex/Vit C/Vit E (Stresstab) 1 each PO DAILY MAAME Stop: 07/03/18 09:01 Last Admin: 01/04/18 10:00 Dose: 1 each Vitamin D (Vitamin D) 1,000 unit PO DAILY MAAME Stop: 07/03/18 09:01 Last Admin: 01/04/18 10:00 Dose: 1,000 unit - Imaging and Cardiology Echo: report reviewed Cardiac cath: report reviewed Other Results: 12 hour tele: avg HR=71 SR. No significant pause. - EKG Interpretation EKG results cardiology: personally reviewed Consult Discharge Plan - Plan Referrals: Navdeep Franco MD [Primary Care Provider] -
[2018-01-05] MEDS: Furosemide 40 MG/4 ML VIAL IVP SCH (08:56)
[2018-01-05] MEDS: Aspirin 81 MG TAB.CHEW PO SCH (08:58)
[2018-01-05] MEDS: Vitamin B Complex/Vit C/Vit E 1 EACH TABLET PO SCH (08:59)
[2018-01-05] MEDS: Cholecalciferol (D-3) 1,000 UNIT TABLET PO SCH (08:59)
[2018-01-05] MEDS: *HR* Ticagrelor 90 MG TABLET PO SCH (08:59)
[2018-01-05] MEDS: Cyanocobalamin (B-12) 1,000 MCG TABLET PO SCH (08:59)
[2018-01-05] MEDS ORDERED: Lisinopril 20 MG TABLET PO SCH (09:00)
--- NOTE | 2018-01-05 13:34 | Discharge Summary ---
- NOTES TO OUTPATIENT PROVIDER Notes to Outpatient Provider: Had left heart cath on 01/03/18. Needs dual antiplatelet therapy for one year uninterrupted. Orders not resulted at time of discharge: Pending orders 01/01/18 04:00 Respiratory Infection Panel [MOLMIC] AM 0400 Date of Encounter: 01/05/18 Time of Encounter: 13:31 - Discharge Diagnosis (1) Acute respiratory failure with hypoxia Priority: Primary Status: Acute (2) Pneumonia Priority: Secondary Status: Acute Qualifiers: Pneumonia type: due to Pneumococcus Laterality: left Lung location: lower lobe of lung Qualified Code(s): J13 - Pneumonia due to Streptococcus pneumoniae (3) BREANA (acute kidney injury) Priority: Secondary Status: Acute (4) CAD (coronary artery disease) Priority: Secondary Status: Acute Qualifiers: Coronary Disease-Associated Artery/Lesion type: [place] artery [place] vs. transplanted heart: [place] heart Associated angina: without angina Qualified Code(s): I25.10 - Atherosclerotic heart disease of [place] coronary artery without angina pectoris (5) Influenza Priority: Secondary Status: Acute (6) Elevated troponin Priority: Secondary Status: Acute (7) DVT prophylaxis Priority: Secondary Status: Acute Hospital course: Ms. Montenegro is a 67 year old female with Hx of CAD s/p stent present to ER for non- productive cough for 7 days. Pt denies fever, runny nose, SOB, chest pain, muscle ache, nausea, or vomiting. In ER, pt was found Flu B positive. CXR shows possible LLL pneumonia. Pt denies recent hospitalization. Pt was admitted for influenza and CAP. She had elevated creatinine from baseline and elevated troponin on admission. She was admitted for further treatment. She was started on Tamiflu, Azithromycin and Rocephin. She completed azithromycin and Tamiflu course. Patient did have sudden onset of SOB, diaphoresis and chest pressure during admission. Her systolic blood pressure was elevated to 200s. Patient has sudden fluid overload and required Lasix. Troponin increased at that time without any acute EKG changes. She was started on heparin drip and Cardiology was consulted. Echocardiogram done sowed EF 60% with mild pulmonary hypertension. She underwent heart catheterization on 01/03/18, had stents placed in pLAD and mRCA and she was started on dual antiplatelet therapy. Patient was stable but did have one episode of 2.9 seconds of bradycardia and she was monitored for an additional day without any acute episodes. She was discharged home in stable condition. She will finish 5 days of Doxycycline, she has done 5 days of Rocephin here. - Time Spent with Patient Total time spent providing and/or coordinating discharge services: - Discharge Medications Prescriptions: Aspirin 81 mg PO DAILY #30 tab.chew Lisinopril [Zestril] 20 mg PO DAILY #30 tablet Ticagrelor [Brilinta] 90 mg PO BID #60 tablet Home Medications: Bee Pollen 580 mg PO DAILY 12/31/17 [History] Benzonatate [Tessalon] 100 mg PO TID 12/31/17 [History] Carvedilol 18.75 mg PO BID 12/31/17 [History] Cholecalciferol (Vitamin D3) [Vitamin D3] 10,000 unit PO DAILY 12/31/17 [History ] Cyanocobalamin (Vitamin B-12) [Vitamin B12] 1,000 mcg PO DAILY 12/31/17 [History ] Omeprazole [PriLOSEC] 20 mg PO DAILY 12/31/17 [History] Simvastatin [Zocor] 40 mg PO HS 12/31/17 [History] Vitamin B Complex [B Complex] 1 each PO DAILY 12/31/17 [History] Aspirin 81 mg PO DAILY #30 tab.chew 01/05/18 [Rx] Doxycycline 100 mg PO BID #10 capsule 01/05/18 [Rx] Lisinopril [Zestril] 20 mg PO DAILY #30 tablet 01/05/18 [Rx] Ticagrelor [Brilinta] 90 mg PO BID #60 tablet 01/05/18 [Rx] Allergies/Adverse Reactions: 3 Allergy/AdvReac Type Severity Reaction Status Date / Time bee venom protein (honey bee) Allergy Anaphylaxis Verified 12/31/17 20:30 Date of admission: 01/01/18 01:25 Primary care physician: Navdeep Franco MD Consults: 01/02/18 05:44 Consult to Cardiology [CONS] Routine Comment: Consulting Provider: Cardiology Chloé Reason for Consult: Suddenly increased SOB with chest pressure. Elevated troponin to 0.11. Hx of CAD s/p stent Call Completed: No 01/03/18 07:43 Consult to Occupational Therapy [CONS] Routine Comment: Evaluate, develop and implement POC Reason for Consult: therapy/placement needs Consult to Physical Therapy [CONS] Routine Comment: Evaluate, develop and implement POC Reason for Consult: PT eval Discharging clinician: Mahnaz Dominguez - Constitutional Vitals: Temp Pulse Resp BP Pulse Ox 98.1 F 84 16 156/72 92 01/05/18 07:54 01/05/18 07:54 01/05/18 11:20 01/05/18 11:20 01/05/18 11:20 General appearance: Present: mild distress, A&O X 3, answers questions appropriately - Head Head exam: Present: atraumatic, normocephalic - Eye Eye exam: Present: PERRL, conjuntiva pink, sclera anicteric Pupils: Present: PERRL - Neck Neck exam general surgery: Present: supple, trachea midline. Absent: lymphadenopathy - Respiratory Respiratory exam: Present: CTAB. Absent: accessory muscle use, rales, rhonchi, wheezes - Cardiovascular Cardiovascular exam: Present: RRR, +S1, +S2. Absent: diastolic murmur, gallop, rubs, systolic murmur - GI/Abdominal GI/Abdominal exam: Present: normal bowel sounds, soft, no peritoneal signs. Absent: distended, tenderness - Extremities Exam Extremities exam: Present: warm, radial pulses palpable and symmetrical. Absent : calf tenderness, cyanotic, pedal edema - Neurological Exam Neurological exam: Present: CN II-XII intact, oriented X3, no focal deficits. Absent: pronater drift, facial droop, speech deficit - Skin Skin exam: Present: dry, intact - Patient Status Disposition: Home, Self-Care Condition: Fair Functional capacity at discharge: independent ambulation Overall status at discharge: patient is progressing back to baseline - Discharge Instructions Follow Up With: Navdeep Franco MD [Primary Care Provider] - - Diet and Activity Activity: increase activity as tolerated Diet: low fat, low cholesterol, low salt diet
== END 2018-01-05 15:43 | disposition home or self-care (01) | DRG 981 ==
LOC: 2SOUTHHOLD 20:13 → EMEROO 20:13 → 2SOUTHHOLD 01-01 02:20 → 3NENU 01-02 18:42 → 2NENU 01-03 16:03
PROVIDERS: ADMIT Internal Medicine; ATTEND Internal Medicine

== ENCOUNTER 2018-01-11 12:56 | Inpatient (IN) ==
[2018-01-11] MEDS ORDERED: 0.9 % Sodium Chloride 1,000 ML IVC ONE (13:04)
--- NOTE | 2018-01-11 13:05 | Emergency Department Note ---
Disposition Clinical Impression: Dizziness, BREANA (acute kidney injury) Hypotension Qualifiers: Hypotension type: unspecified hypotension type Qualified Code(s): I95.9 - Hypotension, unspecified Disposition: Admitted As Inpatient Condition: Fair Referrals: Navdeep Franco MD [Primary Care Provider] - Forms: Work/School Release, ED Satisfaction Letter Time of Disposition: 15:43 General Adult HPI - General Chief complaint: ED General Medical Stated complaint: Hypotension Time Seen by Provider: 01/11/18 13:03 Source: patient, EMS Mode of arrival: ambulatory Limitations: no limitations Nursing Notes Reviewed: Yes Vital Signs Reviewed: Yes - History of Present Illness HPI Narrative: 67-year-old female with a history of recent hospitalization for sepsis pneumonia. During the hospital course the patient did undergo a left heart catheter and had 2 stents placed. Patient presents to the emergency department via EMS today due to hypotension and dizziness. Patient states that they recently increased her lisinopril during her last hospitalization. Patient states he took her blood pressure medication earlier today. Patient states that then she felt really dizzy. Patient took her blood pressure at home and was noted to have a blood pressure of 60. Patient denies any chest penetrance of breath. Patient denies any nausea vomiting or abdominal pain. Patient supposedly states she feels dizzy. States that she recently was hospitalized. Patient denies having had any blood thinners besides Plavix. Pain Scale: 0 - Related Data Home Medications Medication Instructions Recorded Confirmed Bee Pollen 580 mg PO DAILY 12/31/17 01/11/18 Carvedilol 18.75 mg PO BID 12/31/17 01/11/18 Cyanocobalamin (Vitamin B-12) 1,000 mcg PO DAILY 12/31/17 01/11/18 [Vitamin B12] Omeprazole [PriLOSEC] 20 mg PO DAILY 12/31/17 01/11/18 Simvastatin [Zocor] 40 mg PO HS 12/31/17 01/11/18 Clopidogrel [Plavix] 75 mg PO DAILY 01/11/18 01/11/18 Vitamin E Acetate [Vitamin E] 400 unit PO DAILY 01/11/18 01/11/18 Previous Rx's Medication Instructions Recorded Aspirin 81 mg PO DAILY #30 tab.chew 01/05/18 Lisinopril [Zestril] 20 mg PO DAILY #30 tablet 01/05/18 Allergies Allergy/AdvReac Type Severity Reaction Status Date / Time bee venom protein (honey bee) Allergy Anaphylaxis Verified 01/11/18 14:58 Constitutional: Denies: fever ENT ED: Denies: ear pain Cardiovascular: Denies: chest pain, palpitations, syncope Respiratory: Denies: cough, dyspnea Gastrointestinal: Denies: abdominal pain, nausea, vomiting Past Medical History - Past Medical History Medical history: Reports: coronary artery disease, hyperlipidemia, hypertension , myocardial infarction Psychiatric history: Reports: no psych history - Social History Smoking Status: Former smoker Smokeless Tobacco Status: No Alcohol use: Reports: none Drug use: Reports: none Physical Exam - General Limitations: no limitations General appearance: alert - Head Head exam: atraumatic, normocephalic, normal inspection - Eye Eye exam: Present: normal appearance, PERRL, EOMI. Absent: scleral icterus - ENT ENT exam: normal exam, normal oropharynx, mucous membranes moist - Neck Neck exam: Present: normal inspection, full ROM, trachea midline - Chest Chest inspection: Present: normal inspection, symmetric chest wall rise - Respiratory Respiratory exam: Present: normal lung sounds bilaterally. Absent: respiratory distress - Cardiovascular Cardiovascular exam: Present: regular rate, normal rhythm - Abdominal Exam Abdominal exam: Present: soft, Non-Tender - Extremities Exam Extremities exam: Present: normal inspection. Absent: pedal edema - Expanded Lower Extremity Exam Neurovascular/Tendon exam: Present: normal capillary refill - Back Exam Back exam: Present: normal inspection - Neurological Exam Neurological exam: Present: alert, oriented X3, CN II-XII intact - Skin Skin exam: Present: warm, dry, intact, normal color Course Vital Signs Temperature 98 F 01/11/18 12:57 Pulse Rate 50 01/11/18 12:57 Respiratory Rate 16 01/11/18 12:57 Blood Pressure 98/48 01/11/18 12:57 O2 Sat by Pulse Oximetry 97 01/11/18 12:57 Temperature 98 F 01/11/18 12:57 Pulse Rate 52 01/11/18 15:51 Respiratory Rate 18 01/11/18 15:51 Blood Pressure 100/47 01/11/18 15:51 O2 Sat by Pulse Oximetry 97 01/11/18 15:51 Oxygen Delivery Oxygen Delivery Room Air Medical Decision Making - MDM Narrative Medical decision making narrative: 67-year-old female present for evaluation of hypotension and dizziness. Patient was symptomatic. Patient blood pressure did respond to IV fluids. Concerns of the patient's possibly overdosed with her blood pressure medications. They recently increased her lisinopril. Patient was noted have prehospital blood pressures in the 60s. Patient's been mentating appropriately in the ER. The patient had basic labs including chest x-ray EKG. Patient's labs show an acute kidney injury likely prerenal. Patient's chest x-ray shows some pulmonary edema with trace effusions. Patient's blood pressures gradually improved. Patient's remained bradycardic. Given the patient's history of beta blockers patient was given a milligram of glucagon. - Lab Data Lab results reviewed: Yes I reviewed the patient's lab results. Result diagrams: 01/11/18 13:13 01/11/18 15:10 Lab Results 01/11/18 01/11/18 01/11/18 Range/Units 13:13 13:13 13:13 WBC (4.3-11.1) K/mcL RBC (3.82-4.97) M/mcL Hgb (11.5-15.4) g/dL Hct (35.3-44.9) % MCV (83.0-100.0) fL MCH (28.0-33.3) pg MCHC (31.6-35.5) g/dL RDW (11.5-14.5) % Plt Count (140-400) K/mcL MPV (9.4-12.4) fL Immature Gran % (0-4) % Seg Neutrophils % % Lymphocytes % % Monocytes % % Eosinophils % % Basophils % % Neutrophils # (1.6-8.9) K/mcL Lymphocytes # (0.6-4.6) K/mcL Monocytes # (0.0-1.3) K/mcL Eosinophils # (0.0-0.6) K/mcL Basophils # (0.0-0.2) K/mcL PT 12.0 (9.4-12.1) Seconds INR 1.1 Sodium Potassium Chloride Carbon Dioxide BUN Creatinine Est GFR ( Amer) Est GFR (Non-Af Amer) BUN/Creatinine Ratio Glucose Calculated Osmolality Lactic Acid 1.3 (0.5-2.2) mmol/L Calcium Troponin I (< 0.04) ng/mL Urine Color (Yellow) Urine Clarity (Clear) Urine pH (5.0-8.0) pH Units Ur Specific [place] (1.010-1.025) Urine Protein (Neg-Trace) mg/dL Urine Glucose (UA) (Normal) mg/dL Urine Ketones (Negative) mg/dL Urine Blood (Negative) Urine Nitrite (Negative) Urine Bilirubin (Negative) Urine Urobilinogen (Normal) mg/dL Ur Leukocyte Esterase (Negative) Specimen Rejected Blood Type O POSITIVE Antibody Screen NEGATIVE 01/11/18 01/11/18 01/11/18 Range/Units 13:13 13:13 13:13 WBC 12.4 H (4.3-11.1) K/mcL RBC 4.20 (3.82-4.97) M/mcL Hgb 13.0 (11.5-15.4) g/dL Hct 37.8 (35.3-44.9) % MCV 90.0 (83.0-100.0) fL MCH 31.0 (28.0-33.3) pg MCHC 34.4 (31.6-35.5) g/dL RDW 12.7 (11.5-14.5) % Plt Count 592 H (140-400) K/mcL MPV 10.1 (9.4-12.4) fL Immature Gran % 0.3 (0-4) % Seg Neutrophils % 58.7 % Lymphocytes % 29.1 % Monocytes % 10.5 % Eosinophils % 0.9 % Basophils % 0.5 % Neutrophils # 7.3 (1.6-8.9) K/mcL Lymphocytes # 3.6 (0.6-4.6) K/mcL Monocytes # 1.3 (0.0-1.3) K/mcL Eosinophils # 0.1 (0.0-0.6) K/mcL Basophils # 0.1 (0.0-0.2) K/mcL PT (9.4-12.1) Seconds INR Sodium Cancelled Potassium Cancelled Chloride Cancelled Carbon Dioxide Cancelled BUN Cancelled Creatinine Cancelled Est GFR ( Amer) Cancelled Est GFR (Non-Af Amer) Cancelled BUN/Creatinine Ratio Cancelled Glucose Cancelled Calculated Osmolality Cancelled Lactic Acid (0.5-2.2) mmol/L Calcium Cancelled Troponin I < 0.03 (< 0.04) ng/mL Urine Color (Yellow) Urine Clarity (Clear) Urine pH (5.0-8.0) pH Units Ur Specific [place] (1.010-1.025) Urine Protein (Neg-Trace) mg/dL Urine Glucose (UA) (Normal) mg/dL Urine Ketones (Negative) mg/dL Urine Blood (Negative) Urine Nitrite (Negative) Urine Bilirubin (Negative) Urine Urobilinogen (Normal) mg/dL Ur Leukocyte Esterase (Negative) Specimen Rejected Hemolyzed Blood Type Antibody Screen 01/11/18 01/11/18 Range/Units 14:36 15:10 WBC (4.3-11.1) K/mcL RBC (3.82-4.97) M/mcL Hgb (11.5-15.4) g/dL Hct (35.3-44.9) % MCV (83.0-100.0) fL MCH (28.0-33.3) pg MCHC (31.6-35.5) g/dL RDW (11.5-14.5) % Plt Count (140-400) K/mcL MPV (9.4-12.4) fL Immature Gran % (0-4) % Seg Neutrophils % % Lymphocytes % % Monocytes % % Eosinophils % % Basophils % % Neutrophils # (1.6-8.9) K/mcL Lymphocytes # (0.6-4.6) K/mcL Monocytes # (0.0-1.3) K/mcL Eosinophils # (0.0-0.6) K/mcL Basophils # (0.0-0.2) K/mcL PT (9.4-12.1) Seconds INR Sodium 135 L Potassium 3.4 L Chloride 104 Carbon Dioxide 23 BUN 52 H Creatinine 1.31 H Est GFR ( Amer) 49 L Est GFR (Non-Af Amer) 40 L BUN/Creatinine Ratio 40 H Glucose 146 H Calculated Osmolality 297 Lactic Acid (0.5-2.2) mmol/L Calcium 8.5 L Troponin I (< 0.04) ng/mL Urine Color Yellow (Yellow) Urine Clarity Clear (Clear) Urine pH 6.0 (5.0-8.0) pH Units Ur Specific [place] 1.017 (1.010-1.025) Urine Protein Negative (Neg-Trace) mg/dL Urine Glucose (UA) Normal (Normal) mg/dL Urine Ketones Negative (Negative) mg/dL Urine Blood Negative (Negative) Urine Nitrite Negative (Negative) Urine Bilirubin Negative (Negative) Urine Urobilinogen Normal (Normal) mg/dL Ur Leukocyte Esterase Negative (Negative) Specimen Rejected Blood Type Antibody Screen - Radiology Data Radiology results reviewed: Yes I reviewed the patient's radiology results. Chest X-Ray 01/11/18 13:03 IMPRESSION: Unchanged findings suggestive of pulmonary interstitial edema with a trace bilateral pleural effusions. D/ / Vazquez Saunders MD / Vazquez Saunders MD Interpreting Provider: Vazquez Saunders MD - EKG Data EKG #1 EKG attestation: Yes I reviewed and interpreted this EKG. EKG shows normal: sinus rhythm Rate: bradycardia Rhythm: NSR [place]/QRS: normal T wave inversions noted in: v1 Interpretation: no acute changes, nonspecific ST-T wave changes Mackenzie - Mackenzie Situation: Demographics Background: Presenting Complaint Assessment: Vital Signs, Course and respsone to treatment, Patient/Family Expectation Recommendation: Barrier(s) to disposition, Recommendation based on pending studies, treatments, or consults S.Dejah Report Given to: Hospitalist Mackenzie Repor Time: 15:57
[2018-01-11 13:25] LABS: Basophils # 0.1 K/mcL (0.0-0.2); Basophils % 0.5 %; Eosinophils # 0.1 K/mcL (0.0-0.6); Eosinophils % 0.9 %; Hematocrit 37.8 % (35.3-44.9); Immature Granulocytes % 0.3 % (0-4); Lymphocytes # 3.6 K/mcL (0.6-4.6); Lymphocytes % 29.1 %; Mean Corpuscular HGB Conc 34.4 g/dL (31.6-35.5); Mean Platelet Volume 10.1 fL (9.4-12.4); Monocytes # 1.3 K/mcL (0.0-1.3); Monocytes % 10.5 %; Neutrophils # 7.3 K/mcL (1.6-8.9); Platelet Count 592 K/mcL (140-400); Red Cell Distribution Width 12.7 % (11.5-14.5); Segmented Neutrophils % 58.7 %
[2018-01-11 13:30] LABS: INR 1.1
[2018-01-11] MEDS ORDERED: Ondansetron 4 MG/2 ML VIAL IVP ONE ×2 (13:56→14:21)
[2018-01-11] MEDS ORDERED: Ondansetron 4 MG/2 ML VIAL ONE (14:22)
--- NOTE | 2018-01-11 14:48 | Emergency Department Note ---
START Narrative - START START: I examined this patient and my medical decision-making was reviewed with the Resident Physician. I agree with the documented findings, disposition and treatment plan as described except to the extent set forth below. 67 year old female presents to the eD with complatinso f hyptoension and bradycardia via EMS. She states that she was most recently admitted t [facility] last week for pnuemonia and pretty pain and had two stents plced. Abundio states that at that time they had increased her lisinopril and carveidol and has beeen feeling incresed weak since then. Our concern was for BB overdose and thus have treated her with gluccagon. Abundio is fluid responsive and her blood pressure has improved to 102/71, alhtuogh her heart is still at 50. We will admit to medicine.
[2018-01-11 14:50] LABS: Bilirubin,Urine Negative (Negative); Blood,Urine Negative (Negative); Clarity,Urine Clear (Clear); Color,Urine Yellow (Yellow); Glucose,Urine (UA) Normal (Normal); Ketones,Urine Negative (Negative); Leukocyte Esterase,Urine Negative (Negative); Nitrite,Urine Negative (Negative); Protein,Urine Negative (Neg-Trace); Specific Gravity,Urine 1.017 (1.010-1.025); Urobilinogen,Urine Normal (Normal)
[2018-01-11 15:34] LABS: Calcium 8.5 mg/dL (8.6-10.3); Potassium 3.4 mEq/L (3.5-5.1)
[2018-01-11] MEDS ORDERED: Ondansetron 4 MG/2 ML VIAL IVP PRN (16:36)
[2018-01-11] MEDS ORDERED: Naloxone 0.4 MG/ML INJ IVP PRN (16:37)
--- NOTE | 2018-01-11 16:44 | Internal Med History&Physical ---
<Art Hay - Last Filed: 01/11/18 16:42> Date of Encounter: 01/11/18 Time of Encounter: 16:42 Assessment and Plan (1) Hypotension Current visit: Yes Status: Acute Presents today with hypotension, dizziness, and bradycardia secondary to betablocker overdose. She was recently admitted for influenza, respiratory failure and type II VT vs NSTEMI and required 2 stents. During this admission she developed HTN and bradycardia with pauses. Prior to discharge her lisinopril was increased from 10mg to 20mg and her Coreg was decreased from 18.75 to 12.5. However, she has continued to take Coreg 18.75. She presents today with hypotension and bradycardia. BP has improved with a 1L fluid bolus but is still in the low 100's-90's. She denies any chest pain or shortness of breath. -Hold antiHTN medications; restart tomorrow if hemodynamic status improves -Decrease Coreg as recommended per cardiology on last admission to 12.5 -Continuous tele, and Spo2 monitoring -IVF -CBC, BMP -trend troponins Qualifiers: Hypotension type: unspecified hypotension type Qualified Code(s): I95.9 - Hypotension, unspecified (2) Bradycardia Current visit: Yes Status: Acute Secondary to beta radha overdose. Had bradycardia and pauses on last admission as well as type II VT. Coreg was decreased from 18.75 to 12.5. However she has continued to take the 18.75. Glucagon given in the ED heart rate increased from 40s to high 50s Continuous telemetry Hold Coreg Resume at decreased dose prior to discharge (3) Dizziness Current visit: Yes Status: Acute Secondary to hypotension and bradycardia. See plan above (4) BREANA (acute kidney injury) Current visit: Yes Status: Acute Likely prerenal with hypotension and bradycardia -IV fluid -Avoid nephrotoxins -Recheck serum creatinine in the morning (5) CAD (coronary artery disease) Current visit: Yes Status: Acute Continue ASA, Statin, Plavix Qualifiers: Coronary Disease-Associated Artery/Lesion type: [place] artery [place] vs. transplanted heart: [place] heart Associated angina: without angina Qualified Code(s): I25.10 - Atherosclerotic heart disease of [place] coronary artery without angina pectoris (6) Hypokalemia Current visit: Yes Status: Acute -20meq potassium now -BMP in am (7) DVT prophylaxis Current visit: Yes Status: Acute Heparin 5000 units SC BID Internal Medicine - H&P: HPI Chief complaint: hypotension, dizziness, bradycardia Admitted From: Home Plans for Post Hospital Care: Home History of present illness: Ms. Montenegro is a 67 year old female with a PMH of CAD, VT (2 stents in 01/19), HLD, HTN. She presents to [facility] ED today with dizziness, bradycardia and hypotension. She was recently admitted to [facility] and treated for influenza and sepsis/PNA. During her stay she had an VT Type 2 vs NSTEMI and received 2 stents. She was noted to be bradycardic with pauses during this stay and her Coreg was decreased at discharge. However, she returns today with bradycardia and hypotension. She admits that she took her antiHTN medications this morning. She also states that she has been continuing to take her Coreg 18.75 dose instead of the 12.5 dose, as she did not know she was supposed to decrease her dose to 12.5. She notes that during her last stay her lisinopril was increased from 10mg to 20mg and that she has been taking her 20mg dose. It appears that this it what is causing her symptoms today. She admits to continued dizziness which is exacerbated with activity. She denies any chest pain, shortness of breath, swelling, edema, extremity pain/swelling, abdominal pain, N/V/D, dysuria, or syncope. CBC unremarkable with the exception of a mildly elevated WBC 12.4. CXR negative for acute pulmonary process. UA unremarkable. Past Med Surg Social Fam HX - Past Medical History Medical history: coronary artery disease, hyperlipidemia, hypertension, myocardial infarction Psychiatric history: no psych history - Social History Smoking Status: Former smoker Smokeless Tobacco Status: No Alcohol use: none Drug use: none - Family History Father Living Status: Age at : 57 Cause of : VT Hx Family Cardiac Disorders: Yes (VT) Internal Medicine - H&P: Meds Bee Pollen 580 mg PO DAILY 12/31/17 [History] Carvedilol 18.75 mg PO BID 12/31/17 [History] Cyanocobalamin (Vitamin B-12) [Vitamin B12] 1,000 mcg PO DAILY 12/31/17 [History ] Omeprazole [PriLOSEC] 20 mg PO DAILY 12/31/17 [History] Simvastatin [Zocor] 40 mg PO HS 12/31/17 [History] Aspirin 81 mg PO DAILY #30 tab.chew 01/05/18 [Rx] Lisinopril [Zestril] 20 mg PO DAILY #30 tablet 01/05/18 [Rx] Clopidogrel [Plavix] 75 mg PO DAILY 01/11/18 [History] Vitamin E Acetate [Vitamin E] 400 unit PO DAILY 01/11/18 [History] 3 Allergy/AdvReac Type Severity Reaction Status Date / Time bee venom protein (honey bee) Allergy Anaphylaxis Verified 01/11/18 14:58 All Systems PM: A 10-system review of systems was performed and is negative for pertinent findings except as documented above in the HPI. - Constitutional Constitutional: weakness, no chills, no fatigue, no fever(s) - Cardiovascular Cardiovascular ROS IM: lightheadedness, palpitations, no chest pain, no dyspnea , no dyspnea on exertion, no edema, no irregular heart rhythm, no syncope - Respiratory Respiratory: no cough, no dyspnea, no hemoptysis, no dyspnea on exertion, no pain on inspiration, no chest congestion, no excessive phlegm production, no change in phlegm color - Gastrointestinal Gastrointestinal: no abdominal pain, no diarrhea, no hematemesis, no hematochezia, no melena, no nausea, no vomiting - Genitourinary Genitourinary: no change in urinary stream, no dysuria, no flank pain, no hematuria - Musculoskeletal Musculoskeletal ROS IM: no numbness, no tingling - Integumentary Integumentary IM: no rash, no unusual bruising - Neurological Neurological ROS: no confusion, no convulsions, no focal weakness, no numbness, no tingling, no tremor(s) - Constitutional Vitals: Temp Pulse Resp BP Pulse Ox 98 F 52 16 97/50 97 01/11/18 12:57 01/11/18 15:51 01/11/18 16:36 01/11/18 16:36 01/11/18 15:51 General appearance: Present: cooperative, A&O X 3, no acute distress, answers questions appropriately - Head Head exam: Present: atraumatic, normocephalic - Eye Pupils: Present: PERRL - Neck Neck exam general surgery: Present: supple, trachea midline. Absent: lymphadenopathy - Respiratory Respiratory exam: Present: CTAB. Absent: accessory muscle use, rales, rhonchi, wheezes - Cardiovascular Cardiovascular exam: Present: bradycardia, +S1, +S2 - GI/Abdominal GI/Abdominal exam: Present: normal bowel sounds, soft, no peritoneal signs. Absent: distended, tenderness - Extremities Exam Extremities exam: Present: warm, radial pulses palpable and symmetrical. Absent : calf tenderness, cyanotic, pedal edema - Neurological Exam Neurological exam: Present: alert, oriented X3. Absent: facial droop, speech deficit - Skin Skin exam: Present: dry, intact Internal Med - H&P Results - Labs CBC & Chem 7: 01/11/18 13:13 01/11/18 15:10 - EKG Data -: EKG Interpreted by Myself EKG shows normal: sinus rhythm Rate: bradycardia - Impressions Impressions Chest X-Ray 01/11/18 13:03 IMPRESSION: Unchanged findings suggestive of pulmonary interstitial edema with a trace bilateral pleural effusions. D/ / Vazquez Saunders MD / Vazquez Saunders MD Interpreting Provider: Vazquez Saunders MD <Jinny Pierce M - Last Filed: 01/11/18 17:34> Date of Encounter: 01/11/18 Internal Medicine - H&P: HPI History of present illness: Ms. Montenegro is a 67 year old female All Systems PM: A 10-system review of systems was performed and is negative for pertinent findings except as documented above in the HPI. - Constitutional Vitals: Temp Pulse Resp BP Pulse Ox 97.5 F L 52 14 92/45 98 01/11/18 16:42 01/11/18 16:42 01/11/18 16:42 01/11/18 16:42 01/11/18 16:42 Internal Med - H&P Results - Labs CBC & Chem 7: 01/11/18 13:13 01/11/18 15:10 - Attending Attestation I have personally performed a face to face evaluation on this patient. I have reviewed and agree with the care plan as written by Art Hay NP. Patient recently discharged s/p treatment for the flu/pneumonia and NSTEMI for which 2 stents were placed after LHC. Comes in with hypotension and bradycardia with rates 40s-50s. Been feeling dizzy. Given 1L NS in ED. Also given 1 mg of glucagon. Has been taking 18.75 mg of Coreg BID but was discharged on 12.5 mg BID. Also recently Lisinopril increased to 20 mg daily. Labs significant for BREANA wth creatinine of 1.31. K3.4, WBC of 12.4, Plt 592. Hold antihyperensives. Gently hydrate. labs in am. Re-evaluated BP meds and dosages when ready for discharge. c/w ASA/plavix for DAPT
[2018-01-11] MEDS: *HR* Heparin 5,000 UNIT/ML VIAL SQ SCH (16:57)
[2018-01-11] MEDS: 0.9 % Sodium Chloride 1,000 ML IVC SCH (16:57)
[2018-01-12] MEDS: 0.9 % Sodium Chloride 1,000 ML IVC SCH ×2 (04:20→13:52)
[2018-01-12 05:05] LABS: Hematocrit 32.7 % (35.3-44.9); Hemoglobin 10.9 g/dL (11.5-15.4); Mean Corpuscular HGB Conc 33.3 g/dL (31.6-35.5); Mean Corpuscular Hemoglobin 30.4 pg (28.0-33.3); Mean Corpuscular Volume 91.1 fL (83.0-100.0); Platelet Count 436 K/mcL (140-400); Red Blood Count 3.59 M/mcL (3.82-4.97); Red Cell Distribution Width 12.8 % (11.5-14.5)
[2018-01-12 06:08] LABS: BUN/Creatinine Ratio 37 (6-26); Blood Urea Nitrogen 40 mg/dL (8-23); Calcium 8.9 mg/dL (8.6-10.3); Carbon Dioxide 21 mEq/L (23-29); Chloride 111 mEq/L (98-107); Glucose 94 mg/dL (70-105); Osmolality,Calculated 294 (280-300); Sodium 137 mEq/L (136-145); eGFR For African Americans > 60 (> 60); eGFR For Non-African Americans 50 (> 60)
[2018-01-12] MEDS: *HR* Heparin 5,000 UNIT/ML VIAL SQ SCH ×2 (06:21→17:23)
[2018-01-12] MEDS: Cyanocobalamin (B-12) 1,000 MCG TABLET PO SCH (09:05)
[2018-01-12] MEDS: Aspirin 81 MG TAB.CHEW PO SCH (09:05)
--- NOTE | 2018-01-12 14:23 | Internal Med Progress Note ---
Date of Encounter: 01/12/18 Time of Encounter: 14:20 - Assessment and plan (1) Hypotension Current Visit: Yes Status: Acute Assessment and plan: Due to dehydration and medication side effect improved continue holding blood pressure medication for now Qualifiers: Hypotension type: unspecified hypotension type Qualified Code(s): I95.9 - Hypotension, unspecified (2) Bradycardia Current Visit: Yes Status: Acute Assessment and plan: Patient is still having heart rate in 50s sinus rhythm patient still have symptoms of dizziness/lightheartedness patient did mention that from last 6 months patient has been having weakness and fatigue continue holding beta radha Coreg consular cardiology for further evaluation - for possible pacemaker eval (3) RBEANA (acute kidney injury) Current Visit: Yes Status: Acute Assessment and plan: Improved tolerating PO intake well will stop IV fluids (4) CAD (coronary artery disease) Current Visit: Yes Status: Acute Assessment and plan: Resumed home medications aspirin, Plavix, and statins Qualifiers: Coronary Disease-Associated Artery/Lesion type: [place] artery [place] vs. transplanted heart: [place] heart Associated angina: without angina Qualified Code(s): I25.10 - Atherosclerotic heart disease of [place] coronary artery without angina pectoris - Subjective Interval history: Ms. Montenegro is a 67 year old female with a PMH of CAD, VA (2 stents in 01/03/18), HLD, HTN. She presents to [facility] ED with dizziness, bradycardia and hypotension. She was recently admitted to [facility] and treated for influenza and sepsis/PNA. During her stay she had an VA Type 2 vs NSTEMI and received 2 stents. She was noted to be bradycardic with pauses during that stay and her Coreg was decreased at discharge. However, she returns with bradycardia and hypotension. She has been continuing to take her Coreg 18.75 dose instead of the 12.5 dose , as she did not know she was supposed to decrease her dose to 12.5. She notes that during her last stay her lisinopril was increased from 10mg to 20mg and that she has been taking her 20mg dose. She denied any CP / SOB. Still feeling weak and lethargic. However overall feels little better today. - Constitutional Vitals: Temp Pulse Resp BP Pulse Ox 98.4 F 50 14 149/69 97 01/12/18 11:32 01/12/18 11:32 01/12/18 11:32 01/12/18 11:32 01/12/18 11:32 General appearance: Present: cooperative, A&O X 3, no acute distress, answers questions appropriately - Head Head exam: Present: atraumatic, normal inspection - Neck Neck exam general surgery: Present: supple - Respiratory Respiratory exam: Present: decreased breath sounds. Absent: rales, respiratory distress, rhonchi, wheezes - Cardiovascular Cardiovascular exam: Present: bradycardia, +S1, +S2. Absent: systolic murmur - GI/Abdominal GI/Abdominal exam: Present: normal bowel sounds, soft. Absent: rebound, rigid, tenderness - Extremities Exam Extremities exam: Absent: calf tenderness, pedal edema, tenderness - Back Exam Back exam: Absent: CVA tenderness (L), CVA tenderness (R) - Neurological Exam Neurological exam: Present: alert, oriented X3 - Psychiatric Psychiatric exam: Present: normal affect, normal mood Internal Medicine: Result - Labs CBC & Chem 7: 01/12/18 04:40 01/12/18 04:40 Labs: Short CBC 01/12/18 Range/Units 04:40 WBC 10.8 (4.3-11.1) K/mcL Hgb 10.9 L D (11.5-15.4) g/dL Hct 32.7 L (35.3-44.9) % Plt Count 436 H (140-400) K/mcL BMP 01/12/18 04:40 Sodium 137 Potassium 4.0 Chloride 111 H Carbon Dioxide 21 L BUN 40 H Creatinine 1.08 Glucose 94 Calcium 8.9 Cardiac Enzymes 01/11/18 01/11/18 Range/Units 17:11 22:21 Troponin I < 0.03 < 0.03 (< 0.04) ng/mL - ABG Interpretation ABG results: PT/INR, D-dimer PT 12.0 Seconds (9.4-12.1) 01/11/18 13:13 Consult Discharge Plan - Plan Referrals: Navdeep Franco MD [Primary Care Provider] -
[2018-01-13 05:02] LABS: BUN/Creatinine Ratio 25 (6-26); Blood Urea Nitrogen 18 mg/dL (8-23); Calcium 9.3 mg/dL (8.6-10.3); Carbon Dioxide 21 mEq/L (23-29); Chloride 110 mEq/L (98-107); Glucose 93 mg/dL (70-105); Magnesium 1.5 mg/dL (1.6-2.6); Osmolality,Calculated 286 (280-300); Potassium 3.6 mEq/L (3.5-5.1); Sodium 137 mEq/L (136-145); eGFR For African Americans > 60 (> 60); eGFR For Non-African Americans > 60 (> 60)
[2018-01-13] MEDS: *HR* Heparin 5,000 UNIT/ML VIAL SQ SCH ×2 (06:14→16:43)
[2018-01-13] MEDS: Cyanocobalamin (B-12) 1,000 MCG TABLET PO SCH (08:34)
[2018-01-13] MEDS: Aspirin 81 MG TAB.CHEW PO SCH (08:34)
[2018-01-13] MEDS ORDERED: Magnesium Sulfate 1 GM in 0.9 % Sodium Chloride 50 ML IVPB ONE (09:02)
[2018-01-13] MEDS ORDERED: amLODIPine 5 MG TABLET PO SCH (09:15)
--- NOTE | 2018-01-13 09:15 | Cardiology Consult Note ---
<Rosalinda Hart - Last Filed: 01/13/18 09:27> Date of Encounter: 01/13/18 Time of Encounter: 08:30 Assessment and Plan (1) BREANA (acute kidney injury) Current Visit: Yes Status: Acute Per cardiology: -BREANA on admission with creatinine 1.31. -Basleine 0.5-0.7. -Reports only oral intake at home was coffee and pop. -Encouraged adequate hydration with patient. -Management per primary service. (2) Hypotension Current Visit: Yes Status: Acute Per cardiology: -BP 60 systolic at home. -BP 60/47 in ER> -OF note, patient reports she did not decrease her carvedilol as instructed at time of discharge. -BP now hypertensives, anti-hypertensives resumed per primary service. Qualifiers: Hypotension type: unspecified hypotension type Qualified Code(s): I95.9 - Hypotension, unspecified (3) Bradycardia Current Visit: Yes Status: Acute Per cardiology: -Symptomatic bradycardia noted in the setting of BREANA, medication non- complaince. -Of note, per review of last cardiology inpatient note, patient was supposed to decrease carvediolol to 12.5mg BID due to a significant pause on tele, however patient was still taking 18.75mg BID at home. -HR 49 on admission. Now off beta blockers. -Telemetry reviewed with average HR previous 12 hours noted to be 67, SR. -Symptoms have resolved -Can consider addition of low dose beta radha if able prior to discharge. (4) CAD (coronary artery disease) Current Visit: Yes Status: Acute Per cardiology: -Known CAD s/p [facility] 01/03/18 with 85% proximal LAD with TEVIN placed, 95% mid RCA with TEVIN placed. -Troponins negative x3. -ECG with non-specific ST changes. -Denies chest pain. -Denies missed doses of ASA and plavix. -TTE 01/02/18 with LVEF 60%, mild pulmonary hypertension, no segmental wall motion abnormalities. -Will continue to monitor. Qualifiers: Coronary Disease-Associated Artery/Lesion type: [place] artery [place] vs. transplanted heart: [place] heart Associated angina: without angina Qualified Code(s): I25.10 - Atherosclerotic heart disease of [place] coronary artery without angina pectoris Discussion w patient/family: The assessment and plan as outlined above was discussed with the patient who expressed understanding and agreement. All questions were answered. Thank you for involving us in the care of your patient. Please call with any questions. Discussed and reviewed with . History of Present Illness Consult date: 01/12/18 Requesting physician: Funmi Hale Consult reason: symptomatic bradycardia Chief complaint: low BP, dizziness History of present illness: Ms. Montenegro is a 67 year old female with a relevant past medical history of HTN, hyperlipidemia, [place], CAD s/p PCI, smoking, chronic fatigue. Patient reports after most recent hospitalization, she returned home. On Saturday, patient states she noticed dizziness and just not "feeling well." Patient states she took her BP and noted to be 60 systolic. Patient presented to [facility]. Patient denies chest pain or increased shortness of breath. Patient states fatigue is about baseline. Patient reports since being at [facility], had not had any more dizziness or lightheadedness. Patient reports she has been up walking without symptoms. Of note, patient also reports she was not taking her medications as was instructed at time of discharge. Also reports only fluid intake was coffee and pop at home. Reports compliance with asa and plavix at home. Past Med Surg Social Fam HX - Past Medical History Attestation: Yes The following information was validated with the patient. Source: patient, old records reviewed Medical history: coronary artery disease, hyperlipidemia, hypertension, myocardial infarction Psychiatric history: no psych history - Past Surgical History Surgical History: angioplasty/stent - Social History Smoking Status: Former smoker Smokeless Tobacco Status: No Alcohol use: none Drug use: none - Family History Father Living Status: Age at : 57 Cause of : [place] Hx Family Cardiac Disorders: Yes ([place]) Medications and Allergies Bee Pollen 580 mg PO DAILY 12/31/17 [History] Carvedilol 18.75 mg PO BID 12/31/17 [History] Cyanocobalamin (Vitamin B-12) [Vitamin B12] 1,000 mcg PO DAILY 12/31/17 [History ] Omeprazole [PriLOSEC] 20 mg PO DAILY 12/31/17 [History] Simvastatin [Zocor] 40 mg PO HS 12/31/17 [History] Aspirin 81 mg PO DAILY #30 tab.chew 01/05/18 [Rx] Lisinopril [Zestril] 20 mg PO DAILY #30 tablet 01/05/18 [Rx] Clopidogrel [Plavix] 75 mg PO DAILY 01/11/18 [History] Vitamin E Acetate [Vitamin E] 400 unit PO DAILY 01/11/18 [History] 3 Allergy/AdvReac Type Severity Reaction Status Date / Time bee venom protein (honey bee) Allergy Anaphylaxis Verified 01/11/18 14:58 All Systems Review: The remainder of the systems were reviewed and are negative - Cardiovascular Cardiovascular: as per HPI - Neurological Neurological: dizziness Physical Examination Vital Signs, Last 4 Hours Temp Pulse Resp BP Pulse Ox 01/13/18 06:40 97.4 F L 60 20 196/47 100 General: Conversant, No Apparent Distress HEENT: Atraumatic, Normocephaly, Mucus Membranes Moist Neck: No JVD, Normal carotid pulses Cardiac: Reg Rate and Rhythm, Normal S1 and S2, No Murmur Lungs: Normal Breath Sounds, No Wheeze, Rales, Rhonchi Neuro: Alert and responsive, No focal deficits noted Abdomen: Soft, Non-Tender Skin: No rashes noted on visualized skin Musculoskeletal: No Chest Wall Tenderness Extremities: No Clubbing, No Cyanosis, No Edema, Normal Pulses Results 01/12/18 04:40 01/13/18 03:50 Lab Results Active Medications Amlodipine Besylate (Norvasc) 5 mg PO DAILY [facility]AME PRN Reason: Protocol Stop: 07/15/18 09:16 Aspirin (Aspirin) 81 mg PO DAILY [facility] Stop: 07/14/18 09:01 Last Admin: 01/13/18 08:34 Dose: 81 mg Clopidogrel Bisulfate (Plavix) 75 mg PO DAILY [facility]AME Stop: 07/14/18 09:01 Last Admin: 01/13/18 08:34 Dose: 75 mg Cyanocobalamin (Vitamin B12) 1,000 mcg PO DAILY [facility]AME Stop: 07/14/18 09:01 Last Admin: 01/13/18 08:34 Dose: 1,000 mcg Heparin Sodium (Porcine) (Heparin) 5,000 unit SQ Q12HCO MAAME Stop: 07/13/18 18:01 Last Admin: 01/13/18 06:14 Dose: 5,000 unit Hydralazine HCl (Hydralazine) 10 mg IVP Q6HR PRN PRN Reason: Hypertension Stop: 07/15/18 01:20 Last Admin: 01/13/18 08:37 Dose: 10 mg Magnesium Sulfate 1 gm/ Sodium (Chloride) 52 mls @ 50 mls/hr IVPB ONCE ONE Stop: 01/13/18 10:04 Lisinopril (Zestril) 20 mg PO DAILY MAAME PRN Reason: Protocol Stop: 07/15/18 09:16 Naloxone HCl (Narcan) 0.4 mg IVP Q2MIN PRN PRN Reason: SEE COMMENTS Stop: 07/13/18 16:38 Omeprazole (Prilosec) 20 mg PO DAILY MAAME PRN Reason: Protocol Stop: 07/14/18 09:01 Last Admin: 01/13/18 08:34 Dose: 20 mg Ondansetron HCl (Zofran) 4 mg IVP Q6HR PRN; Protocol PRN Reason: Nausea Stop: 07/13/18 16:37 Last Admin: 01/13/18 08:36 Dose: 4 mg Simvastatin (Zocor) 40 mg PO HS MAAME PRN Reason: Protocol Stop: 07/13/18 21:01 Last Admin: 01/12/18 21:59 Dose: 40 mg Vitamin E (Vitamin E) 400 unit PO DAILY [facility]AME Stop: 07/14/18 09:01 Last Admin: 01/13/18 08:34 Dose: 400 unit - Imaging and Cardiology Chest Xray: report reviewed Echo: report reviewed Cardiac cath: report reviewed - EKG Interpretation EKG results cardiology: personally reviewed (ECG with SB, HR 49.), other ( Telemetry reviewed with average HR previous 12 hours noted to be 67, SR. PVCs and PACs noted.) Consult Discharge Plan - Plan Referrals: Navdeep Franco MD [Primary Care Provider] - <Michael Brownlee - Last Filed: 01/13/18 11:49> Date of Encounter: 01/13/18 - Attending Attestation 67 YOF s/p PCI to the LAD and RCA presents with bradycardia and hypotensive. She denies any syncope or Chest pain. Last EF 60% Continue to hold BB Titrate up lisinopril for adequate BP control F/U with cardio in 4-6 weeks No further cardiac testing planned Assessment and Plan Discussion w patient/family: The assessment and plan as outlined above was discussed with the patient and/or family members who expressed understanding and agreement. All questions were answered. Thank you for involving us in the care of your patient. Please call with any questions. History of Present Illness History of present illness: Ms. Montenegro is a 67 year old female All Systems Review: The remainder of the systems were reviewed and are negative Physical Examination Vital Signs, Last 4 Hours Temp Pulse Resp BP Pulse Ox 01/13/18 10:34 97.6 F 66 20 127/56 98 Results 01/12/18 04:40 01/13/18 03:50 Lab Results 01/13/18 03:50 Sodium 137 Potassium 3.6 Chloride 110 H Carbon Dioxide 21 L BUN 18 Creatinine 0.71 Glucose 93 Calcium 9.3 Magnesium 1.5 L
[2018-01-13] MEDS: Lisinopril 20 MG TABLET PO SCH (09:54)
--- NOTE | 2018-01-13 16:50 | Internal Med Progress Note ---
Date of Encounter: 01/13/18 Time of Encounter: 11:15 - Assessment and plan (1) Hypotension Current Visit: Yes Status: Acute Assessment and plan: Due to dehydration and medication side effect improved Now pt has uncontrolled BP in 190's Resumed her home med Lisinopril at 20mg Will adjust doses depending on her BP Patient does need to stay in the hospital more than 2 midnights due to her complex medical problems with fluctuating BP and HR. So we will change her to full admission today. I did review my colleague Dr. Pierce H & P including HPI, PMH, PSH, FH, SH, and ROS no changes noticed Qualifiers: Hypotension type: unspecified hypotension type Qualified Code(s): I95.9 - Hypotension, unspecified (2) Bradycardia Current Visit: Yes Status: Acute Assessment and plan: Off the Coreg x 2 days sinus rhythm ..now HR in 60's Card is on board Cont holding Coreg May send her home on Holter monitor (3) BREANA (acute kidney injury) Current Visit: Yes Status: Acute Assessment and plan: Improved tolerating PO intake well (4) CAD (coronary artery disease) Current Visit: Yes Status: Acute Assessment and plan: Resumed home medications aspirin, Plavix, and statins Qualifiers: Coronary Disease-Associated Artery/Lesion type: [place] artery [place] vs. transplanted heart: [place] heart Associated angina: without angina Qualified Code(s): I25.10 - Atherosclerotic heart disease of [place] coronary artery without angina pectoris - Subjective Interval history: Ms. Montenegro is a 67 year old female with a PMH of CAD, MD (2 stents in 01/03/18), HLD, HTN. She presents to [facility] ED with dizziness, bradycardia and hypotension. She was recently admitted to [facility] and treated for influenza and sepsis/PNA. During her stay she had an MD Type 2 vs NSTEMI and received 2 stents. She was noted to be bradycardic with pauses during that stay and her Coreg was decreased at discharge. However, she returns with bradycardia and hypotension. She has been continuing to take her Coreg 18.75 dose instead of the 12.5 dose , as she did not know she was supposed to decrease her dose to 12.5. She notes that during her last stay her lisinopril was increased from 10mg to 20mg and that she has been taking her 20mg dose. She denied any CP / SOB. Feels little better today. No events over night - Constitutional Vitals: Temp Pulse Resp BP Pulse Ox 98.2 F 73 18 143/58 96 01/13/18 15:14 01/13/18 15:14 01/13/18 15:14 01/13/18 15:14 01/13/18 15:14 General appearance: Present: cooperative, A&O X 3, no acute distress, answers questions appropriately - Head Head exam: Present: atraumatic, normal inspection - Neck Neck exam general surgery: Present: supple - Respiratory Respiratory exam: Present: decreased breath sounds. Absent: rales, respiratory distress, rhonchi, wheezes - Cardiovascular Cardiovascular exam: Present: RRR, +S1, +S2. Absent: tachycardia - GI/Abdominal GI/Abdominal exam: Present: normal bowel sounds, soft. Absent: rebound, rigid, tenderness - Extremities Exam Extremities exam: Absent: pedal edema, tenderness - Back Exam Back exam: Absent: CVA tenderness (L), CVA tenderness (R) - Neurological Exam Neurological exam: Present: alert, oriented X3 - Psychiatric Psychiatric exam: Present: normal affect, normal mood - Skin Skin exam: Absent: rash Internal Medicine: Result - Labs CBC & Chem 7: 01/12/18 04:40 01/13/18 03:50 Labs: BMP 01/13/18 03:50 Sodium 137 Potassium 3.6 Chloride 110 H Carbon Dioxide 21 L BUN 18 Creatinine 0.71 Glucose 93 Calcium 9.3 - ABG Interpretation ABG results: PT/INR, D-dimer PT 12.0 Seconds (9.4-12.1) 01/11/18 13:13 Consult Discharge Plan - Plan Referrals: Navdeep Franco MD [Primary Care Provider] -
[2018-01-13] MEDS ORDERED: 0.9 % Sodium Chloride 500 ML ONE (17:19)
--- NOTE | 2018-01-13 19:33 | Electrocardiograph Report ---
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
--- NOTE | 2018-01-13 20:10 | Electrocardiograph Report ---
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
[2018-01-14] MEDS: *HR* Heparin 5,000 UNIT/ML VIAL SQ SCH (06:40)
[2018-01-14] MEDS: Cyanocobalamin (B-12) 1,000 MCG TABLET PO SCH (09:35)
[2018-01-14] MEDS: Lisinopril 20 MG TABLET PO SCH (09:36)
--- NOTE | 2018-01-14 10:01 | Discharge Summary ---
- NOTES TO OUTPATIENT PROVIDER Notes to Outpatient Provider: stop taking Coreg until you see roustabout. See [employer]ic in one week. Use Holter monitor for one week and f/u with Cardiology for this. BP medications - take Lisinopril 20mg PO daily only.. New Rx given now Date of Encounter: 01/14/18 Time of Encounter: 10:00 - Discharge Diagnosis (1) Hypotension Priority: Primary Status: Acute Qualifiers: Hypotension type: unspecified hypotension type Qualified Code(s): I95.9 - Hypotension, unspecified (2) Bradycardia Priority: Primary Status: Acute (3) BREANA (acute kidney injury) Priority: Primary Status: Acute (4) CAD (coronary artery disease) Priority: Secondary Status: Acute Qualifiers: Coronary Disease-Associated Artery/Lesion type: crow artery [place] vs. transplanted heart: crow heart Associated angina: without angina Qualified Code(s): I25.10 - Atherosclerotic heart disease of [place] coronary artery without angina pectoris Hospital course: Ms. Montenegro is a 67 year old female with a PMH of CAD, MA (2 stents in 01/03/18), HLD, HTN. She presents to [facility] ED with dizziness, bradycardia and hypotension. She was recently admitted to [facility] and treated for influenza and sepsis/PNA. During her stay she had an MA Type 2 vs NSTEMI and received 2 stents. She was noted to be bradycardic with pauses during that stay and her Coreg was decreased at discharge. However, she returns with bradycardia and hypotension. She has been continuing to take her Coreg 18.75 dose instead of the 12.5 dose , as she did not know she was supposed to decrease her dose to 12.5. She notes that during her last stay her lisinopril was increased from 10mg to 20mg and that she has been taking her 20mg dose. Pt was admitted in the hospital and held her BB Coreg completely, now her HR In low 60's. She did have hypotension initially due to dehydration + Medication side effect. With IV fluids her BP improved and BREANA resolved. For her BP now she is on Lisinopril 20mg PO Daily and it is fairly controlled now. Since she does have severe variations and fluctuations in her BP , recommend to continue only Lisinopril for now and f/u with PCP and Cardiology in one week. Also talked to roustabout about her bradycardia, which might be due to BB effect, however since pt has some fatigue symptoms for a while, we are going to hold Coreg completely and d/c her home on Holter monitor for 7 days. - Time Spent with Patient Total time spent providing and/or coordinating discharge services: - Discharge Medications Prescriptions: Lisinopril [Zestril] 20 mg PO DAILY #30 tablet Home Medications: Bee Pollen 580 mg PO DAILY 12/31/17 [History] Cyanocobalamin (Vitamin B-12) [Vitamin B12] 1,000 mcg PO DAILY 12/31/17 [History ] Omeprazole [PriLOSEC] 20 mg PO DAILY 12/31/17 [History] Simvastatin [Zocor] 40 mg PO HS 12/31/17 [History] Aspirin 81 mg PO DAILY #30 tab.chew 01/05/18 [Rx] Clopidogrel [Plavix] 75 mg PO DAILY 01/11/18 [History] Vitamin E Acetate [Vitamin E] 400 unit PO DAILY 01/11/18 [History] Lisinopril [Zestril] 20 mg PO DAILY #30 tablet 01/14/18 [Rx] Allergies/Adverse Reactions: 3 Allergy/AdvReac Type Severity Reaction Status Date / Time bee venom protein (honey bee) Allergy Anaphylaxis Verified 01/11/18 14:58 Date of admission: 01/13/18 16:52 Primary care physician: Navdeep Franco MD - Constitutional Vitals: Temp Pulse Resp BP Pulse Ox 99.0 F 61 16 163/74 95 01/14/18 07:39 01/14/18 07:39 01/14/18 07:39 01/14/18 07:39 01/14/18 07:39 General appearance: Present: cooperative, A&O X 3, no acute distress, answers questions appropriately - Head Head exam: Present: atraumatic, normal inspection - Neck Neck exam general surgery: Present: supple - Respiratory Respiratory exam: Present: decreased breath sounds. Absent: rales, respiratory distress, rhonchi, wheezes - Cardiovascular Cardiovascular exam: Present: RRR, +S1, +S2. Absent: tachycardia - GI/Abdominal GI/Abdominal exam: Present: normal bowel sounds, soft. Absent: rebound, rigid, tenderness - Extremities Exam Extremities exam: Absent: calf tenderness, pedal edema, tenderness - Back Exam Back exam: Absent: CVA tenderness (L), CVA tenderness (R) - Neurological Exam Neurological exam: Present: alert, oriented X3 - Psychiatric Psychiatric exam: Present: normal affect, normal mood - Patient Status Disposition: Home, Self-Care Condition: Good Overall status at discharge: patient is back to baseline - Discharge Instructions Follow Up With: Navdeep Franco MD [Primary Care Provider] - Narayan Hall DO [Partnered Physician] - - Diet and Activity Activity: increase activity as tolerated Diet: low salt diet
[2018-01-14 10:57] VITALS: BP 125/66
== END 2018-01-14 14:00 | disposition home or self-care (01) | DRG 315 ==
LOC: 2ANU 12:56 → EMEROO 12:56 → SUATTDRO 16:12 → 2ANU 16:49
PROVIDERS: ADMIT Family Medicine; ATTEND Family Medicine